=== PATIENT | female | born 1945 | race Caucasian/White ===

== ENCOUNTER → 2020-06-29 09:16 | Outpatient (BNVA) | payer BC, SELFPAY | PROVIDERS: PCP Internal Medicine; Visit Provider Hospitalist | DX: Z76.89 Persons encountering health services in other specified circumstances (principal) ==

== ENCOUNTER 2020-08-10 16:41 | Outpatient (REF) | payer BC, SELFPAY | END 2020-08-10 16:42 | disposition home or self-care (01) | LOC: HO.LAB 16:41 | PROVIDERS: Visit Provider Internal Medicine | DX: Z20.828 Contact with and (suspected) exposure to other viral communicable diseases (principal) | CPT/HCPCS: C9803; U0003 ==

== ENCOUNTER → 2020-10-28 08:57 | Outpatient (BNVA) | payer BC, SELFPAY | PROVIDERS: PCP Internal Medicine; Visit Provider Hospitalist ==

== ENCOUNTER 2020-12-28 10:06 | Outpatient (REF) | payer BC, SELFPAY ==
--- NOTE | ~2020-12-28 | XR_ITS ---
EXAMINATION: XR CHEST CLINICAL INFORMATION: Interstitial pulmonary disease COMPARISON: Previous chest x-ray most recent March 2020 TECHNIQUE: 2 views of the chest were obtained. FINDINGS: The cardiac and mediastinal contours are normal. The lungs are clear. There is no pleural effusion or pneumothorax. There is curvature of the lower thoracic spine to the right and mild degenerative change. XR/XR chest 2V IMPRESSION: No evidence for acute disease in the chest.
== END 2020-12-28 10:07 | disposition home or self-care (01) ==
LOC: HO.XRAY 10:06
PROVIDERS: PCP Internal Medicine; Visit Provider Hospitalist
DX: J84.9 Interstitial pulmonary disease, unspecified (principal)
CPT/HCPCS: 71046

== ENCOUNTER → 2020-12-29 09:18 | Outpatient (BNVA) | payer BC, SELFPAY | PROVIDERS: PCP Internal Medicine; Visit Provider Hospitalist ==

== ENCOUNTER → 2021-06-20 10:12 | Outpatient (BNVA) | payer BC, SELFPAY | PROVIDERS: PCP Internal Medicine; Visit Provider Hospitalist ==

== ENCOUNTER 2021-12-29 08:28 | Outpatient (REF) | payer BC, SELFPAY ==
--- NOTE | ~2021-12-29 | XR_ITS ---
EXAMINATION: XR CHEST CLINICAL INFORMATION: Interstitial pulmonary COMPARISON: 12/29/2019 TECHNIQUE: 2 views of the chest were obtained. FINDINGS: Normal symmetric lung volumes. No parenchymal consolidation. No pleural effusion. No pneumothorax. Cardiomediastinal silhouette and pulmonary vascularity are within normal limits. Aorta is atherosclerotic. No acute osseous abnormalities. XR/XR chest 2V IMPRESSION: No acute findings
== END 2021-12-29 08:29 | disposition home or self-care (01) ==
LOC: HO.XRAY 08:28
PROVIDERS: PCP Pediatrics; Visit Provider Hospitalist
DX: M35.02 Sjogren syndrome with lung involvement (principal); J84.9 Interstitial pulmonary disease, unspecified
CPT/HCPCS: 71046

== ENCOUNTER 2022-02-14 08:51 | Outpatient (REF) | payer BC, SELFPAY ==
--- NOTE | ~2022-02-14 | XR_ITS ---
EXAMINATION: XR CHEST CLINICAL INFORMATION: J84.9 - Interstitial pulmonary disease, unspecified COMPARISON: Chest radiographs 12/29/2021, 12/28/2020, 03/29/2020, 08/07/2019, 05/27/2019. TECHNIQUE: 2 views of the chest were obtained. FINDINGS: There is subtle density right lateral apex likely chronic pleural-parenchymal scarring not previously described. This overlies the right posterior fourth rib on frontal view. The lungs are otherwise clear with no interval airspace consolidation or groundglass opacity or fibrotic changes. No effusion. The costophrenic sulci are clear. The heart is normal in size. The hilar and mediastinal contours are normal. No acute bony abnormality. XR/XR chest 2V IMPRESSION: -Subtle density right lateral apex likely chronic pleural-parenchymal scarring not previously described. This could be further characterized with noncontrast CT chest. -No interval fibrotic changes, airspace consolidation, or effusion.
== END 2022-02-14 08:52 | disposition home or self-care (01) ==
LOC: HO.XRAY 08:51
PROVIDERS: Visit Provider Hospitalist
DX: J84.9 Interstitial pulmonary disease, unspecified (principal)
CPT/HCPCS: 71046

== ENCOUNTER 2022-04-03 07:17 | Outpatient (REF) | payer BC, SELFPAY ==
--- NOTE | ~2022-04-03 | XR_ITS ---
EXAMINATION: XR CHEST CLINICAL INFORMATION: Interstitial pulmonary disease COMPARISON: Previous chest x-rays most recent January 2022 TECHNIQUE: 2 views of the chest were obtained. FINDINGS: The cardiac and mediastinal contours are stable. There is mild biapical pleural thickening. There is question of a 7 mm right upper lobe nodule at the right lung apex. This is similar to previous recent exams. This is increased in size from older exam July [address] follow-up should be considered. There may be bronchial wall thickening. The lungs are otherwise clear. There is no pleural effusion or pneumothorax. There is mild scoliosis and degenerative changes of the spine. XR/XR chest 2V IMPRESSION: Question 7 mm right upper lobe nodule. Follow-up chest CT scan should be considered. Mild biapical pleural thickening stable from previous exams. Question bronchial wall thickening.
== END 2022-04-03 07:18 | disposition home or self-care (01) ==
LOC: HO.XRAY 07:17
PROVIDERS: Visit Provider Hospitalist
DX: J84.9 Interstitial pulmonary disease, unspecified (principal)
CPT/HCPCS: 71046

== ENCOUNTER 2022-04-10 09:38 | Outpatient (REF) | payer BC, SELFPAY ==
--- NOTE | ~2022-04-10 | CT_ITS ---
EXAMINATION: CT CHEST WITHOUT CONTRAST CLINICAL INFORMATION: Abnormal finding on diagnostic imaging. Pulmonary nodule. COMPARISON: Chest x-ray 04/03/2022. TECHNIQUE: Multidetector volumetric CT imaging of the chest was done. Axial MIP volume rendering provided. Sagittal and coronal reformatted images were obtained. This CT examination was performed using dose optimization techniques as appropriate, variously including the following: *Automated exposure control *Adjustment of mA and/or kV according to patient size (this includes techniques or standardized protocols for targeted exams where dose is matched to indication/reason for exam; i.e. extremities or head) *Use of iterative reconstruction technique DLP: 104 mGy-cm. FINDINGS: FLARE BREAKER: Expanded lungs with mild dextroscoliosis dorsal lumbar spine. LUNGS: There is bilateral apical parenchymal scarring and pleural thickening. Few patchy parenchymal densities seen in both apices, likely continuation of upper lobe scarring. There is several areas of ground-glass attenuation changes in the left upper lobe measuring 7 mm to 1.1 cm axial image 168/6. There are 3 mm nodules in the left upper lobe axial image 169/6 and 231/6. There is a 3 mm nodule right upper lobe axial image 237/6, a 3 mm nodule right lower lobe superior segment axial image 285/6, a 3 mm nodule right upper lobe adjacent to the major fissure axial image 280/6, a 3 mm nodule right upper lobe adjacent to the minor fissure axial image 300/6 and 3 mm nodule left lower lobe axial image 457/6. There is subtle tkhv-[id number] pattern right upper lobe axial image 31/4. MEDIASTINUM: The heart size and the great vessels are normal caliber. Central trachea and the bronchi appear widely patent. The thyroid lobes are symmetrical and normal. No abnormal mediastinal lymph nodes seen. There is moderate coronary artery calcifications. No pericardial effusion seen. Small hiatal hernia visualized. PLEURA: There is no pleural effusion. No pleural mass or thickening. AXILLA: There are small bilateral shotty submandibular lymph nodes. Punctate calcification seen in superficial right breast. UPPER ABDOMEN: Visualized liver, spleen, pancreas and bilateral adrenal glands are unremarkable. The gallbladder has been surgically removed. Adrenal glands are symmetrical and normal. OSSEOUS STRUCTURES: No lytic or sclerotic process seen. There is mild spondylosis dorsal spine. CT/CT chest wo con IMPRESSION: Multiple bilateral pulmonary nodules. Peripherally based mdwn-[id number] pattern right upper lobe. No acute consolidation or mass seen. Small reactive lymph nodes in bilateral axilla. Moderate coronary artery calcifications present. Fleischner guidelines were followed.
== END 2022-04-10 09:39 | disposition home or self-care (01) ==
LOC: HO.CT 09:38
PROVIDERS: PCP Pediatrics; Visit Provider Hospitalist
DX: R91.1 Solitary pulmonary nodule (principal); R93.89 Abnormal findings on diagnostic imaging of other specified body structures
CPT/HCPCS: 71250

== ENCOUNTER → 2022-09-18 13:54 | Outpatient (BNVA) | payer BC, SELFPAY | PROVIDERS: PCP Nurse Practitioner Family; Visit Provider Hospitalist | DX: Z13.89 Encounter for screening for other disorder (principal) ==

== ENCOUNTER → 2022-10-19 14:39 | Outpatient (BNVA) | payer BC, SELFPAY | PROVIDERS: PCP Nurse Practitioner Family; Visit Provider Hospitalist | DX: K21.9 Gastro-esophageal reflux disease without esophagitis (principal) ==

== ENCOUNTER → 2023-01-02 08:29 | Outpatient (BNVA) | payer BC, SELFPAY | PROVIDERS: PCP Nurse Practitioner Family; Visit Provider Hospitalist | DX: K21.9 Gastro-esophageal reflux disease without esophagitis (principal); J84.9 Interstitial pulmonary disease, unspecified ==

== ENCOUNTER 2023-09-04 08:19 | Outpatient (REF) | payer MEDICARE, SELFPAY ==
--- NOTE | ~2023-09-04 | XR_ITS ---
EXAMINATION: XR chest 2V CLINICAL INFORMATION: Reason for Exam J84.9 - Interstitial pulmonary disease, unspecified COMPARISON: Chest radiograph 04/03/2022 TECHNIQUE: 2 views of the chest FINDINGS: Clear lungs. No pneumothorax or pleural effusion. Normal cardiomediastinal silhouette. XR/XR chest 2V Impression: * Clear lungs.
== END 2023-09-04 08:20 | disposition home or self-care (01) ==
LOC: HO.XRAY 08:19
PROVIDERS: PCP Internal Medicine; Visit Provider Hospitalist
DX: J84.9 Interstitial pulmonary disease, unspecified (principal); J44.9 Chronic obstructive pulmonary disease, unspecified; M35.02 Sjogren syndrome with lung involvement; R13.10 Dysphagia, unspecified
CPT/HCPCS: 71046

== ENCOUNTER 2023-09-04 08:47 | Outpatient (AMB) | payer BC, SELFPAY ==
[2023-09-04 08:54] VITALS: BP 126/58; PULSE 76; O2SAT 97; BMI 25.6
--- NOTE | 2023-09-04 08:54 | A.OFFVIS_ITS ---
Intake Vital Signs 09/04/23 08:54 Height 4 ft 11 in Weight 126 lb 12.253 oz BMI 25.6 BP 126/58 L Blood Pressure Location Lt brachial Position Sitting Pulse 76 Pulse Source Pulse Oximeter Pulse Oximetry (%) 97 Oxygen Delivery Method Room Air Intake Visit Reasons: COPD Allergies Pork Derived Products Allergy (Severe, Uncoded 09/04/23 08:59) Hives Eggs Allergy (Intermediate, Uncoded 09/04/23 08:59) Hives and Rash Peanuts Allergy (Intermediate, Uncoded 09/04/23 08:59) Rash Hives HPI HPI Comments History of Present Illness Details The patient is a 78-year-old woman known history of positive NITA in Sjogren's disease along with 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 She has biopsy-proven acute fibrinous and organizing pneumonia. She responded well to the prednisone. She has done very well to the point that she is no longer on oxygen and she is back to work at least 3 times a week. She is also exercising between. She does follow-up with rheumatology. At this point she is getting vitamin D therapy. Based on the initial evaluation did not feel compelled to give her any therapies for the Sjogren's or the positive NITA at the time. She did have an x-ray today we did look at it demonstrates some nodular like opacities in the right mid lung area suggestive of the underlying interstitial lung disease with some reactivity. She has been on the prednisone 5 mg daily. Therefore, we talked about optimized therapy with some Plaquenil and increasing the prednisone some. She did well on the 10 mg. She still has some degree of hazy opacity in the right mid hemithorax. Therefore, she will have another x-ray today. If the x-ray still has that finding we may need to do a CT scan of the chest. If she continues have evidence of pneumonitis we need to increase her medications. 01/02/2023 the patient is here for pulmon benitez follow-up visit. The patient overall is doing better. She is tolerating the prednisone 2.5 mg daily. The patient did undergo endoscopy. Did have see the stricture and did have her dilation. She is going to have a repeat endoscopy in the near future. She was found to have reflux disease. She understands prednisone can worsen esophagitis so we need to be very careful. Right now she is tolerating the small dose. She is also taking antacids. Clinically patient is doing well from a respiratory status. Will plan to follow-up in 4-6 months with a chest x-ray. In the meantime she is going to continue with the prednisone since she can no longer tolerate the Plaquenil. 09/04/2023 the patient is here for a pulm onary follow-up visit. The patient overall has been doing well. She continues on the prednisone 2.5 mg daily. She has not gone back on the hydrochloroquine because of the hyponatremia. Seems that the reflux symptoms are better. Denies any significant shortness of breath or cough. She did have a chest x-ray today that we personally reviewed together. No evidence of any recurrent ground-glass opacities. The x-ray has not been read yet will await the final report for any other findings. 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 If it continues to occur the patient will seek medical attention for that. [facility] Medical History (Updated 09/04/23 @ 09:10 by Dustin Abdullahi MD) Dysphagia ILD (interstitial lung disease) Sjogrens syndrome Social History (Updated 06/20/21 @ 10:33 by DUYEN Mathews) Patient Tobacco Use Status: Former Tobacco user Tobacco use type: Cigarette Years Smoked: 20 years Review of Systems Const Denies night sweats Eyes Reports dry eyes ENT Denies change in voice, Denies dysphagia, Reports dry mouth, Denies lip swelling, Reports nasal congestion, Reports nasal discharge and Denies tongue swelling Card Denies chest pain Resp Reports cough GI Denies abdominal pain and Denies dysphagia Musc Denies no additional complaints Neuro Denies Neuro-related abnormal movements Psych Denies no additional complaints Hilario/Lymph Denies easy bleeding and Denies lymphadenopathy Aller/Immun Denies lip swelling and Denies tongue swelling Physical Exam Vital Signs: Last Vital Signs Pulse 76 09/04/23 08:54 BP 126/58 L 09/04/23 08:54 Pulse Ox 97 09/04/23 08:54 Oxygen Delivery Method Room Air 09/04/23 08:54 BMI result Body Mass Index 25.6 Const General: alert HEENT Mouth: other (DRY) Neck Neck: Yes normal visual inspection, Yes full ROM and Yes no lymphadenopathy Chest Chest palpation & inspection: normal inspection of the chest Resp Effort & Inspection: normal respiratory effort Auscultation: no rales and diminished lung sounds Cardio Rate: regular rate Rhythm: regular rhythm Heart sounds: S1 normal heart sound present and S2 normal heart sound present GI Palpation (GI): Soft to palpation and nontender Auscultation: normal bowel sounds Skin General skin exam: rashes and/or lesions noted Assessment & Plan Assessment & Plan (1) ILD (interstitial lung disease): Code(s): J84.9 - Interstitial pulmonary disease, unspecified (2) Sjogrens syndrome: Code(s): M35.00 - Sjogren syndrome, unspecified Qualifiers: Sjogren's organ involvement: lung involvement Qualified Code(s): M35.02 - Sicca syndrome with lung involvement (3) Dysphagia: Comment: s/p esophageal dilation Code(s): R13.10 - Dysphagia, unspecified Qualifiers: Dysphagia type: unspecified Qualified Code(s): R13.10 - Dysphagia, unspecified Plan continue prednisone 2.5mg F/U 6-8 months Coding Level of Care Code Est Pt Level 4 (95256) Diagnoses ILD (interstitial lung disease) J84.9 Sjogren's syndrome with lung involvement M35.02 Sjogren's organ involvement: lung involvement Dysphagia, unspecified type R13.10 Dysphagia type: unspecified Time Spent (min) 17
== END 2023-09-04 09:21 | disposition home or self-care (01) ==
PROVIDERS: PCP Nurse Practitioner Family; Visit Provider Hospitalist
DX: J84.9 Interstitial pulmonary disease, unspecified (principal); M35.02 Sjogren syndrome with lung involvement; R13.10 Dysphagia, unspecified
CPT/HCPCS: 99214

== ENCOUNTER 2024-02-26 08:32 | Outpatient (AMB) | payer BC, MEDICAID, SELFPAY ==
[2024-02-26 08:33] VITALS: BP 124/60; PULSE 76; O2SAT 98; BMI 26.9
--- NOTE | 2024-02-26 08:33 | A.OFFVIS_ITS ---
Vital Signs 02/26/24 08:33 Height 4 ft 11 in Weight 133 lb 6.075 oz BMI 26.9 BP 124/60 Blood Pressure Location Lt brachial Position Sitting Pulse 76 Pulse Source Pulse Oximeter Pulse Oximetry (%) 98 Oxygen Delivery Method Room Air Intake Visit Reasons: COPD Bowl Turner Required: No Allergies Pork Derived Products Allergy (Severe, Uncoded 02/26/24 08:37) Hives Eggs Allergy (Intermediate, Uncoded 02/26/24 08:37) Hives and Rash Peanuts Allergy (Intermediate, Uncoded 02/26/24 08:37) Rash Hives HPI Comments Details: The patient is a 78-year-old woman known history of positive NITA in Sjogren's disease along with 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 She has biopsy-proven acute fibrinous and organizing pneumonia. She responded well to the prednisone. She has done very well to the point that she is no longer on oxygen and she is back to work at least 3 times a week. She is also exercising between. She does follow-up with rheumatology. At this point she is getting vitamin D therapy. Based on the initial evaluation did not feel compelled to give her any therapies for the Sjogren's or the positive NITA at the time. She did have an x-ray today we did look at it demonstrates some nodular like opacities in the right mid lung area suggestive of the underlying in terstitial lung disease with some reactivity. She has been on the prednisone 5 mg daily. Therefore, we talked about optimized therapy with some Plaquenil and increasing the prednisone some. She did well on the 10 mg. She still has some degree of hazy opacity in the right mid hemithorax. Therefore, she will have another x-ray today. If the x-ray still has that finding we may need to do a CT scan of the chest. If she continues have evidence of pneumonitis we need to increase her medications. 01/02/2023 the patient is here for pulmonary follow-up visit. The patient overall is doing better. She is tolerating the prednisone 2.5 mg daily. The patient did undergo endoscopy. Did have see the stricture and did have her dilation. She is going to have a repeat endoscopy in the near future. She was found to have reflux disease. She understands prednisone can worsen esophagitis so we need to be very careful. Right now she is tolerating the small dose. She is also taking antacids. Clinically patient is doing well from a respiratory status. Will plan to follow-up in 4-6 months with a chest x-ray. In the meantime she is going to continue with the prednisone since she can no longer tolerate the Plaquenil. 09/04/2023 the patient is here for a pulmonary follow-up visit. The patient overall has been doing well. She continues on the prednisone 2.5 mg daily. She has not gone back on the hydrochloroquine because of the hyponatremia. Seems that the reflux symptoms are better. Denies any significant shortness of breath or cough. She did have a chest x-ray today that we personally reviewed together. No evidence of any recurrent ground-glass opacities. The x-ray has not been read yet will await the final report for any other findings. 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 If it continues to occur the patient will seek medical attention for that. 02/26/2024 the patient is here for pulmonary follow-up visit. She continues to do well just on the 2.5 mg of prednisone. She has been exercising although. Sometimes she exercises between an hour to an hour 45 minutes. Now with the heat and humidity is becoming hard to exercise. Therefore she is back in off a little bit. I believe does good idea. During the visit we did go for brief walking oximetry the patient maintain a pulse ox between 93-96% with activity. This was a fast pace. This reassuring although she needs to be careful with heat and humidity in the ground ozone. We did talk about the concerns with right now the quality outside. Respiratory exam is clear. No significant wheezing or crackles appreciated at this time. Therefore will hold off any inhalers. If the patient develops any worsening symptoms she will call [facility] follow-up in the spring. She will have an x-ray before that visit. [facility] Medical History (Updated 09/04/23 @ 09:10 by Dustin Abdullahi MD) Dysphagia ILD (interstitial lung disease) Sjogrens syndrome Social History (Updated 06/20/21 @ 10:33 by DUYEN Mathews) Patient Tobacco Use Status: Former Tobacco user Tobacco use type: Cigarette Years Smoked: 20 years Review of Systems Const Denies night sweats Eyes Reports dry eyes ENT Denies change in voice, Denies dysphagia, Reports dry mouth, Denies lip swelling, Reports nasal congestion, Reports nasal discharge and Denies tongue swelling Card Denies chest pain Resp Reports cough GI Denies abdominal pain and Denies dysphagia Musc Denies no additional complaints Neuro Denies Neuro-related abnormal movements Psych Denies no additional complaints Hilario/Lymph Denies easy bleeding and Denies lymphadenopathy Aller/Immun Denies lip swelling and Denies tongue swelling Physical Exam Vital Signs: Last Vital Signs Pulse 76 02/26/24 08:33 BP 124/60 02/26/24 08:33 Pulse Ox 98 02/26/24 08:33 Oxygen Delivery Method Room Air 02/26/24 08:33 BMI result Body Mass Index 26.9 Const General: alert HEENT Mouth: other (DRY) Neck Neck: Yes normal visual inspection, Yes full ROM and Yes no lymphadenopathy Chest Chest palpation & inspection: normal inspection of the chest Resp Effort & Inspection: normal respiratory effort Auscultation: no crackles, no rales, no rhonchi, no wheezes and diminished lung sounds Cardio Rate: regular rate Rhythm: regular rhythm Heart sounds: S1 normal heart sound present and S2 normal heart sound present GI Palpation (GI): Soft to palpation and nontender Auscultation: normal bowel sounds Skin General skin exam: rashes and/or lesions noted Assessment & Plan Assessment & Plan (1) ILD (interstitial lung disease): Code(s): J84.9 - Interstitial pulmonary disease, unspecified Category: Medical (2) Sjogrens syndrome: Code(s): M35.00 - Sjogren syndrome, unspecified Category: Medical Qualifiers: Sjogren's organ involvement: lung involvement Qualified Code(s): M35.02 - Sicca syndrome with lung involvement (3) Dysphagia: Comment: s/p esophageal dilation Code(s): R13.10 - Dysphagia, unspecified Category: Medical Qualifiers: Dysphagia type: unspecified Qualified Code(s): R13.10 - Dysphagia, unspecified (4) Pulmonary nodule: Code(s): R91.1 - Solitary pulmonary nodule Category: Medical Plan continue prednisone 2.5mg F/U Spring [address] chest Orders: Orders CT chest wo IV con 10/18/24 J84.9 - Interstitial pulmonary disease, unspecif ied, R91.1 - Solitary pulmonary nodule Coding Level of Care Code Est Pt Level 4 (09720) Diagnoses ILD (interstitial lung disease) J84.9 Sjogren's syndrome with lung involvement M35.02 Sjogren's organ involvement: lung involvement Dysphagia, unspecified type R13.10 Dysphagia type: unspecified Pulmonary nodule R91.1 Time Spent (min) 16
== END 2024-02-26 08:53 | disposition home or self-care (01) ==
PROVIDERS: PCP Internal Medicine; Visit Provider Hospitalist
DX: J84.9 Interstitial pulmonary disease, unspecified (principal); M35.02 Sjogren syndrome with lung involvement; R13.10 Dysphagia, unspecified; R91.1 Solitary pulmonary nodule
CPT/HCPCS: 99214

== ENCOUNTER → 2024-02-26 08:32 | Outpatient (BNVA) | payer BC, MEDICAID, SELFPAY | PROVIDERS: PCP Internal Medicine; Visit Provider Hospitalist ==

== ENCOUNTER 2024-10-21 07:09 | Outpatient (REF) | payer BC, MEDICAID, SELFPAY ==
--- NOTE | ~2024-10-21 | CT_ITS ---
CLINICAL HISTORY: J84.9 - Interstitial pulmonary disease, unspecified CT chest without contrast Comparison: 04/10/2022 Findings: Lung bergman are clear without acute infiltrates. Stable chronic interstitial fibrosis pattern. Stable bilateral apical pleural scarring. No significant pulmonary nodules identified. No significant mediastinal adenopathy. No significant free pleural fluid. Dense coronary artery calcification. Dense mitral annulus calcification. No significant focal bony abnormalities. Impression: No acute processes This document has been electronically signed by: Silverio Fuentes MD on 10/21/2024 19:09:51
--- OUTSIDE RECORDS SUMMARY | 2024-10-21 07:12 | XMS_ITS | Encounter Summary ---
Author Organization [facility], Address [address] [place] [address] Phone Care Team Providers Care Tube Molder [employer] Name Role Phone Tahmina Orta MD Primary Care Provider [phone] Encounter Details Date Type Department Care Team (Late st Contact Info) Description 08/16/2022 Documentation Only [facility], [address] [place] [id number] David Payan MD [address] [place] [id number] Social History Tobacco Use Types Packs/Day Years Used Date Smoking Tobacco: Never Assessed Comments Unknown Sex and Gender Information Value Date Recorded Sex Assigned at Not on file Legal Sex Female 10:21 AM EST Gender Identity Not on file Sexual Orientation Not on file documented as of this encounter Plan of Treatment Not on file documented as of this encounter Visit Diagnoses Not on filedocumented in this encounter Care Teams Tube Molder [employer] Relationship Specialty Start Date End Date Tahmina Orta MD [address] [place] [address], [address] [place] [address] PCP - General Radiation Oncology 09/06/22 documented as of this encounter
--- OUTSIDE RECORDS SUMMARY | 2024-10-21 07:12 | XMS_ITS | Continuity of Care Document ---
Author Organization [facility] Address [address] [place] [address]- Care Team Providers Care Instrument Designer Name Role Phone Not on Staff, PCP Primary Care Physician Unavail able Encounter [facility] Date(s): 08/26/24 - 09/25/24 [facility] [address] [place] [address]- Attending Physician: Thelma Jose Admitting Physician: AdmtrThelma Referring Physician: Admtr ArPaloma Encounter Type: Triage Allergies, Adverse Reactions, Alerts Substance Criticality Severity Reaction Reaction Severity Status Nuts Active Pork Active Immunizations Given and Recorded Vaccine Date Status Refusal Reason RSV vaccine, preF A-preF B, recombinant 09/10/23 R ecorded Influenza Virus Vaccine (oldterm) 07/09/23 Recorde d SARS-CoV-2(COVID-19)mRNA-LNP vac([id number]) 06/14/23 Recorded [id number] bivalent booster vax 1 02/05/23 Recorded [id number] bivalent booster vax 05/27/22 Recorded tetanus/diphtheria/pertussis, acel(Tdap) 12/26/22 Recorded tetanus/diphtheria/pertussis, acel(Tdap) 02/06/12 Recorded influenza virus vaccine, inactivated 07/08/22 Isidro rded influenza virus vaccine, inactivated 07/11/21 Isidro rded influenza virus vaccine, inactivated 06/25/20 Isidro rded influenza virus vaccine, inactivated 07/11/19 Isidro rded SARS-CoV-2 (COVID-19) mRNA-1273 vaccine 11/30/21 R ecorded SARS-CoV-2 (COVID-19) mRNA-1273 vaccine 06/28/21 R ecorded SARS-CoV-2 (COVID-19) mRNA-1273 vaccine 11/06/20 R ecorded SARS-CoV-2 (COVID-19) mRNA-1273 vaccine 10/07/20 R ecorded zoster vaccine, inactivated 02/17/20 Recorded zoster vaccine, inactivated 10/03/19 Recorded pneumococcal 13-valent vaccine 06/16/16 Recorded Zoster Vaccine Live 05/27/12 Recorded pneumococcal 23-valent vaccine 02/06/12 Recorded tetanus-diphtheria toxoids (Td) 08/19/04 Recorded 1Result Comment: [facility] Medications calcium (as carbonate) 500 mg oral tablet, chewable 1 tablet = 500 mg, Daily, 0 Refills, Maintenance, 07/31/22 8:15:00 AM EST, Partial fill upon patient request if the prescription is for a schedule II opioid drug. Start Date: 07/31/22 Status: Ordered Repeat number: 1 home blood pressure monitor home blood pressure monitor, See Instructions, # 1 each, Refills 0, Tot. Refills 0, Maintenance, home blood pressure monitor, 01/09/24 8:34:00 AM EDT, Supply Start Date: 01/09/24 Status: Ordered Quantity: 1.0 Unit: each Repeat number: 1 Indication: Essential (primary) hypertension Ocuvite By Mouth, Daily, 0 Refills, Maintenance, 08/18/21 12:52:00 PM EST, Partial fill upon patient request if the prescription is for a schedule II opioid drug. Start Date: 08/18/21 Status: Ordered Repeat number: 1 pantoprazole 40 mg oral delayed release tablet 1 tablet = 40 mg, By Mouth, Daily, # 90 tablet, 3 Refills, Maintenance, 08/26/24 11:14:00 AM EST, EC Tablet, 150, cm, 08/26/24 10:29:00 EST, Height, 58, kg, 09/04/23 21:54:00 EST, Dry Weight Start Date: 08/26/24 Status: Ordered Quantity: 90.0 Unit: tablet Repeat number: 4 PredniSONE = 2.5 mg, By Mouth, Daily, 0 Refills, Maintenance, 11/07/22 9:17:00 AM EDT, Partial fill upon patient request if the prescription is for a schedule II opioid drug. Start Date: 11/07/22 Status: Ordered Repeat number: 1 Vitamin D3 400 intl units oral capsule 1 capsule = 10 mcg, By Mouth, Daily, 0 Refills, Maintenance, 08/18/21 12:54:00 PM EST, Partial fillupon patient request if the prescription is for a schedule II opioid drug. Start Date: 08/18/21 Status: Ordered Repeat number: 1 Walker Walker, See Instructions, # 1 each, Refills 0, Tot. Refills 0, Maintenance, use as needed for ambulatory support for fibula fracture, 01/16/20 11:54:00 PM EDT, Supply Start Date: 01/16/20 Status: Ordered Quantity: 1.0 Unit: each Repeat number: 1 Problem List Condition Confirmation Course Effective Dates Status H ealth Status Informant Sensation, choking Confirmed Active [place] of foot Confirmed Active Dysphagia Confirmed Active Chronic GERD Confirmed Active History of pneumonia Confirmed Active HTN (hypertension) Confirmed Active Hypochloremia Confirmed Active Hyponatremia Confirmed Active Interstitial lung disease Confirmed Active Osteoarthritis of right knee Confirmed Active Seasonal allergies Confirmed Active Sjogren's syndrome Confirmed Active Tubular adenoma of colon Confirmed 04/13/22 Active Social History Social History Type Response Smoking Status Former smoker, quit more than 30 days ago; Other: quit in 1981; entered on: 07/31/22 Sex Sex Representation Female (finding) Patient Care team information Care Team Personnel Name: Not on Staff, PCP Position: S Physician (General Medicine) Member Role: PCP Care Team Related Persons Name: SHAHEEN LOPEZ Name: ANA SUTTON Insurance Providers Guarantor name: VINAY SUTTON Health Plan Information #: 1 Payer: KANDI Member Number: NA Policy Number: NA Group Number: NA Health Plan Information #: 2 [facility] Member Number: NA Policy Number: NA Group Number: NA
--- OUTSIDE RECORDS SUMMARY | 2024-10-21 07:12 | XMS_ITS | Encounter Summary ---
Author Organization [facility], Address [address] [place] [address] Phone Care Team Providers Care Digital Printer Operator Name Role Phone Tahmina Orta MD Primary Care Provider [phone] Encounter Details Date Type Department Care Team (Late st Contact Info) Description 08/16/2022 Documentation Only [facility], [address] [place] [phone] David Payan MD [address] [place] [phone] Social History Tobacco Use Types Packs/Day Years [...] on filedocumented in this encounter Care Teams Digital Printer Operator Relationship Specialty Start Date End Date Tahimna Orta MD [address] [place] [address], [address] [place] [address] PCP - General Radiation Oncology 09/06/22 documented as of this encounter
--- OUTSIDE RECORDS SUMMARY | 2024-10-21 07:12 | XMS_ITS | Encounter Summary ---
Author Organization [facility], Address [address] [place] [address] Phone Care Team Providers Care Pellet Mill Operator Name Role Phone Tahmina Orta MD Primary Care Provider Encounter Details Date Type Department Care Team (Late st Contact Info) Description 08/16/2022 Documentation Only [facility], [address] [place] [phone] David Payan MD [address] [place] [phone] Social History Tobacco Use Types Packs/Day Years [...] on filedocumented in this encounter Care Teams Pellet Mill Operator Relationship Specialty Start Date End Date Tahmina Orta MD [address] [place] [address], [address] [place] [address] PCP - General Radiation Oncology 09/06/22 documented as of this encounter
--- OUTSIDE RECORDS SUMMARY | 2024-10-21 07:12 | XMS_ITS | Continuity of Care Document ---
Author Organization [facility] Address [address] [facility], [address] [place] [address]- Care Team Providers Care Rehabilitation Services Director Name Role Phone Fanny [employer], Beckie Oliveira Primary Care Physician Encounter 10/13/24 - 10/20/24 [facility] [address], [address] [place], [place] [address] Attending Physician: Percy العلي, Laura Fabian Admitting Physician: Percy العلي, Laura Fabian Referring Physician: Percy العلي, Laura Fabian Encounter Type: OutPatient One Time Allergies, Adverse Reactions, Alerts Substance Criticality Severity Reaction Reaction Severity Status Nuts Active Pork Active Immunizations Given and Recorded Vaccine Date Status Refusal Reason RSV vaccine, preF A-preF B, recombinant 09/10/23 R ecorded Influenza Virus Vaccine (oldterm) 07/09/23 Recorde d SARS-CoV-2(COVID-19)mRNA-LNP vac([id number]) 06/14/23 Recorded [id number] bivalent booster vax 1 02/05/23 Recorded [id number] bivalent booster vax 05/27/22 Recorded tetanus/diphtheria/pertussis, acel(Tdap) [...] Date: 07/31/22 Status: Ordered Repeat number: 1 Eliquis 5 mg oral tablet 1 tablet = 5 mg, By Mouth, 2 times a day, for a. fib; ERAN VAsc score is 4, # 180 tablet, 2 Refills, Maintenance, 09/30/24 5:35:00 PM EST, Tablet, [id number], Partial fill upon patient request if the prescription is for a schedule II opioid drug., 150, cm, 09/29/24 12:44:00 EST, Height, 58, kg, 09/04/23 21:54:00 EST, Dry Weight Start Date: 09/30/24 Status: Ordered Quantity: 180.0 Unit: tablet Repeat number: 3 home blood pressure monitor home blood pressure monitor, See Instructions, # 1 each, Refills 0, Tot. Refills 0, Maintenance, home blood pressure monitor, 01/09/24 8:34:00 AM EDT, Supply Start Date: 01/09/24 Status: Ordered Quantity: 1.0 Unit: each Repeat number: 1 Indication: Essential (primary) hypertension metoprolol 25 mg oral tablet, extended release 25 mg, 1, tablet, By Mouth, Daily, # 90 tablet, Refills 3, Tot. Refills 3, Maintenance, 09/29/24 2:19:00 PM EST, Route to Pharmacy Electronically, [id number], Partial fill upon patient request if the prescription is for a schedule II opioid drug., 150, cm, 09/29/24 12:44:00 EST, Height, 58, kg, 09/04/23 21:54:00 EST, Dry Weight Start Date: 09/29/24 Status: Ordered Quantity: 90.0 Unit: tablet Repeat number: 4 Indication: Unspecified atrial fibrillation Ocuvite By Mouth, Daily, 0 Refills, Maintenance, [...] Date: 08/18/21 Status: Ordered Repeat number: 1 [place] Calab[place], See Instructions, # 1 each, Refills 0, Tot. Refills 0, Maintenance, use as needed for ambulatory support for fibula fracture, 01/16/20 11:54:00 PM EDT, Supply Start Date: 01/16/20 Status: Ordered Quantity: 1.0 Unit: each Repeat number: 1 Problem List Condition Confirmation Course Effective Dates Status H ealth Status Informant Sensation, choking Confirmed Active B12 deficiency Confirmed Active [place] of foot Confirmed Active Dysphagia Confirmed Active Chronic GERD Confirmed Active History of pneumonia Confirmed Active HTN (hypertension) Confirmed Active Hypochloremia Confirmed Active Hyponatremia Confirmed Active Interstitial lung disease Confirmed Active Osteoarthritis of right knee Confirmed Active Seasonal allergies Confirmed Active Sjogren's syndrome Confirmed Active Tubular adenoma of colon Confirmed 04/13/22 Active Results Radiology Reports * Exam Date Time Procedure Performing Provider Status 10/13/24 10:48 AM XR Hip w/Pelvis 2-3 View Left Perry Mccoy; Kadi (Verified) Notes: (XR Hip w/Pelvis 2-3 View Left) Reason For Exam: Pain RESULT: XR Hip w/Pelvis 2-3 View Left XR Hip w/Pelvis 2-3 View Left Reason: Pain COMPARISON: AP pelvis 08/27/2018 FINDINGS: Pelvic ring is intact without fracture no lytic or blastic bone lesions. Bones are generally osteopenic. Left hip joint is well maintained without any significant degenerative changes here. No evidence for avascular necrosis of the femoral head. There are mild enthesopathic changes about the greater trochanter. There are atherosclerotic changes of the iliac and femoral vessels. IMPRESSION: No acute findings. Enthesopathic changes of the greater trochanter. Osteopenia. WSN: [id number] Ordering Physician: Laura Greer Dictated By: Dav Bonds MD Dictated Date/Time: 10/14/24 7:23 am Reviewed By: Dav Bonds MD Signed By: Dav Bonds MD Signed Date/Time: 10/14/24 7:23 am Transcribed By: CHELY Transcribed Date/Time: 10/14/24 7:19 am * Exam Date Time Procedure Performing Provider Status 10/13/24 10:48 AM Ankle Min 3 Views Left Perry Mccoy (Verified) Notes: (Ankle Min 3 Views Left) Reason For Exam: Pain RESULT: Ankle Min 3 Views Left Examination: Left ankle performed on 10/13/2024. History: Reason: Pain Findings: Frontal, oblique, and lateral views of the left ankle are compared to a prior study dated 01/16/2020. The mortise is preserved. Deformity of the lateral malleolus is consistent with prior trauma. No acute fractures or dislocations are seen. There is no productive change. The soft tissues are unremarkable. Vascular calcification is noted. IMPRESSION: There is no osseous abnormality. WSN: [id number] Ordering Physician: Laura Greer Dictated By: Marianna Maria MD Dictated Date/Time: 10/13/24 10:57 a Reviewed By: Marianna Maria MD Signed By: Marianna Maria MD Signed Date/Time: 10/13/24 10:57 am Transcribed By: CHELY Transcribed Date/Time: 10/13/24 10:55 am Social History Social History Type Response Smoking Status Former smoker, quit more than 30 days ago; Other: quit in 1981; entered on: 09/29/24 Sex Sex Representation Female (finding) Patient Care team information Care Team Personnel Name: Beckie Escobedo NP Position: S PCO Associate Professional Member Role: PCP Address: [address] [place] [address] [address] Telecom: Care Team Related Persons Name: SHAHEEN LOPEZ Name: ANA SUTTON Insurance Providers Guarantor name: VINAY SUTTON Health Plan Information #: 2 Payer: [facility] Member Number: [id number] Policy Number: KANDI Group Number: KANDI Health Plan Information #: 1 Payer: NA Member Number: [id number] Policy Number: KANDI Group Number: [id number]
--- OUTSIDE RECORDS SUMMARY | 2024-10-21 07:12 | XMS_ITS | Encounter Summary ---
Author Organization [facility] Address [address] [place] [address] Care Team Providers Care Excellence Consultant Name Role Phone Kenny Alicea MD Primary Care Provider Reason for Visit * Imaging (Routine) - Pending Review Specialty Diagnoses / Procedures Referred By Contac t Referred To Contact Radiology Diagnoses Encounter for screening mammogram for breast cancer Procedures MG Mammo Digital Screening w Hipolito bilat MG Mammo Digital Screening w Hipolito bilat Kenny Alicea MD [address] [place] [address] Phone: tel: fax: [facility] Referral ID Status Reason Start Date Expiration Date V isits Requested Visits Authorized [id number] Pending Review 06/05/2024 10/11/2024 1 1 Encounter Details Date Type Department Care Team (Latest Contact Info) Description 10/08/2024 8:22 AM EST - 10/08/2024 11:59 PM [facility] Encounter Radiology Department [address] [address] Encounter for screening mammogram for breast cancer Discharge Disposition: Home or Self Care Social History Tobacco Use Types Packs/Day Years Used Date Smoking Tobacco: Former Cigarettes Q uit: 08/20/1979 Smokeless Tobacco: Never Alcohol Use Standard Drinks/Week Comments No 0 (1 standard drink = 0.6 oz pur e alcohol) Comments No Sex and Gender Information Value Date Recorded Sex Assigned at Not on file Legal Sex Female 2:04 AM EST Gender Identity Not on file Sexual Orientation Not on file documented as of this encounter Medications at Time of Discharge calcium carbonate-choleca lciferol 500 mg-10 mcg (400 unit) per tablet Take by mouth. hydroxychloroquin e (PLAQUENIL) 200 mg tablet Take 1 tablet (200 mg total) by mouth 1 (one) time each day. 06/20/2021 vit A,C and B-kgoiyl-trodbpxt (OCUVITE) 300 mcg-200 mg-27 mg-2 mg tablet Take by mouth. documented as of this encounter Discharge Disposition Disposition Code Departure Means Destination Home or Self Care documented in this encounter Plan of Treatment Not on file documented as of this encounter Procedures Procedure Name Priority Date/Time Associated Diagnosis Comments MG MAMMO DIGITAL SCREENING W HIPOLITO BILAT Routine 10/08/2024 8:34 AM EST Encounter for screening mammogram for breast cancer documented in this encounter Results * MG Mammo Digital Screening w Hipolito bilat (10/08/2024 8:34 AM EST) Anatomical Region Laterality Modality Breast Bilateral Mammography 10/08/2024 4:39 PM EST Impressions 10/08/2024 4:43 PM EST 1. No mammographic evidence of malignancy 2. Scattered fibroglandular tissue BI-RADS CATEGORY: 2 - BENIGN RECOMMENDATION: Screening bilateral mammogram is recommended in 1 year. Mammo Location: [facility], [address] [place] [address], [address], . -------- FINAL REPORT -------- Dictated By: Ninfa Oliveira Dictated Date: 10/08/2024 16:39 ET Assigned Physician: Ninfa Oliveira Reviewed and Electronically Signed By: Ninfa Oliveira Signed Date: 10/08/2024 16:43 ET Workstation ID: [id number] Transcribed By: Self Edit Transcribed Date: 10/08/2024 16:39 ET Narrative 10/08/2024 4:43 PM EST A BILATERAL DIGITAL 3D SCREENING MAMMOGRAPHY HISTORY: Routine screening. ??No family history of breast cancer. COMPARISON: Multiple priors dating back to 09/09/2020 Technique: Bilateral full field digital mammography (3D) was performed using standard CC and MLO projections CAD ??was used to evaluate this mammogram. FINDINGS: Right: No suspicious masses, groups of microcalcification or areas of architectural distortion identified. Stable typically benign parenchymal asymmetries. Left: No suspicious masses, groups of microcalcification or areas of architectural distortion identified. Stable typically benign parenchymal asymmetries. BREAST DENSITY: B - There are scattered areas of fibroglandular density. Procedure Note Ninfa Oliveira MD - 10/08/2024 A BILATERAL DIGITAL 3D SCREENING MAMMOGRAPHY HISTORY: Routine screening. No family history of breast cancer. COMPARISON: Multiple priors dating back to 09/09/2020 Technique: Bilateral full field digital mammography (3D) was performedusing standard CC and MLO projections CAD was used to evaluate this mammogram. FINDINGS: Right: No suspicious masses, groups of microcalcification or areas ofarchitectural distortion identified. Stable typically benign parenchymalasymmetries. Left: No suspicious masses, groups of microcalcification or areas ofarchitectural distortion identified. Stable typically benign parenchymalasymmetries. BREAST DENSITY: B - There are scattered areas of fibroglandular density. IMPRESSION: 1. No mammographic evidence of malignancy 2. Scattered fibroglandular tissue BI-RADS CATEGORY: 2 - BENIGN RECOMMENDATION: Screening bilateral mammogram is recommended in 1 year. Mammo Location: [facility], [address] [place] [address], [address], . -------- FINAL REPORT -------- Dictated By: Ninfa Oliveira Dictated Date: 10/08/2024 16:39 ET Assigned Physician: Ninfa Oliveira Reviewed and Electronically Signed By: Ninfa Oliveira Signed Date: 10/08/2024 16:43 ET Workstation ID: [id number] Transcribed By: Self Edit Transcribed Date: 10/08/2024 16:39 ET Kenny Alicea MD IMG BI PROCEDURES Final Result documented in this encounter Visit Diagnoses Diagnosis Encounter for screening mammogram for breast cancer documented in this encounter Care Teams Excellence Consultant Relationship Specialty Start Date End Date Kenny Alicae MD [address] [place] [address] PCP - General Internal Medicine 03/10/21 documented as of this encounter
--- OUTSIDE RECORDS SUMMARY | 2024-10-21 07:12 | XMS_ITS | Clinical Summary ---
Author Organization [facility], Address [address] [place] [address] [place] [address] Phone Care Team Providers Care Insurance Agents Supervisor Name Role Phone Tahmina Orta MD Primary Care Provider Allergies Active Allergy Reactions Criticality Noted Date Comments Egg-Derived Products 08/16/2022 Pork Allergy 08/16/2022 Medications hydroxychloroqui ne (PLAQUENIL) 200 MG tablet Take 200 mg by mouth 1 (one) time each day 07/25/2022 Active calcium carbonate (TUMS) 500 MG chewable tablet Chew 1 tablet 1 (one) time each day Active Multiple Vitamins-Mineral s (OCUVITE EXTRA PO) Take by mouth Active Cholecalciferol (Vitamin D3) 10 MCG (400 UNIT) capsule Take by mouth Active Active Problems Problem Noted Date Diagnosed Date Hypertensive disorder 08/16/2022 Hyponatremia 08/16/2022 Social History Tobacco Use Types Packs/Day Years Used Date Smoking Tobacco: Never Assessed Comments Unknown Sex and Gender Information Value Date Recorded Sex Assigned at Not on file Legal Sex Female 10:21 AM EST Gender Identity Not on file Sexual Orientation Not on file Plan of Treatment Health Maintenance Due Date Last Done Comments Influenza Vaccine (#1) 2024 Pneumococcal Vaccine: 65+ Years Completed 06/16/2016, 02/06/2012 Hepatitis B Vaccine Aged Out No longe r eligible based on patient's age to complete this topic Insurance [facility] Care Teams Insurance Agents Supervisor Relationship Specialty Start Date End Date Tahmina Orta MD [address] [place] [address], [address] [place] [address] PCP - General Radiation Oncology 09/06/22
--- OUTSIDE RECORDS SUMMARY | 2024-10-21 07:12 | XMS_ITS | Encounter Summary ---
Author Organization [facility], Address [address] [place] [address] Phone Care Team Providers Care Transit Worker Name Role Phone Tahmina Orta MD Primary Care Provider [phone] Encounter Details Date Type Department Care Team (Late st Contact Info) Description 08/16/2022 Documentation Only [facility], [address] [place] [phone] David Payan MD [address] [place] [phone] Social History Tobacco Use Types Packs/Day Years [...] on filedocumented in this encounter Care Teams Transit Worker Relationship Specialty Start Date End Date Tahmina Orta MD [address] [place] [address], [address] [place] [address] PCP - General Radiation Oncology 09/06/22 documented as of this encounter
--- OUTSIDE RECORDS SUMMARY | 2024-10-21 07:12 | XMS_ITS | Encounter Summary ---
Author Organization [facility], Address [address] [place] [address] Phone Care Team Providers Care Guest Laundry Attendant Name Role Phone Tahmina Orta MD Primary Care Provider [phone] Encounter Details Date Type Department Care Team (Late st Contact Info) Description 08/16/2022 Documentation Only [facility], [address] [place] [phone] David Payan MD [address] [place] [phone] Social History Tobacco Use Types Packs/Day Years [...] on filedocumented in this encounter Care Teams Guest Laundry Attendant Relationship Specialty Start Date End Date Tahmina Orta MD [address] [place] [address], [address] [place] [address] PCP - General Radiation Oncology 09/06/22 documented as of this encounter
--- OUTSIDE RECORDS SUMMARY | 2024-10-21 07:12 | XMS_ITS | Encounter Summary ---
Author Organization [facility], Address [address] [place] [address] Phone Care Team Providers Care Grinder Set Up Operator External Name Role Phone Tahmina Orta MD Primary Care Provider [phone] Encounter Details Date Type Department Care Team (Late st Contact Info) Description 09/06/2022 Documentation Only [facility], [address] [place] [address] David Payan MD [address] [place] [phone] Social History Tobacco Use Types Packs/Day Years [...] on filedocumented in this encounter Care Teams Grinder Set Up Operator External Relationship Specialty Start Date End Date Tahmina Orta MD [address] [place] [address], [address] [place] [address] PCP - General Radiation Oncology 09/06/22 documented as of this encounter
--- OUTSIDE RECORDS SUMMARY | 2024-10-21 07:12 | XMS_ITS | Encounter Summary ---
Author Organization [facility], Address [address] [place] [address] Phone Care Team Providers Care Knot Saw Operator Name Role Phone Tahmina Orta MD Primary Care Provider [phone] Encounter Details Date Type Department Care Team (Late st Contact Info) Description 08/16/2022 Documentation Only [facility], [address] [place] [id number] David Payan MD [address] [place] [phone] Social History Tobacco Use Types Packs/Day Years [...] on filedocumented in this encounter Care Teams Knot Saw Operator Relationship Specialty Start Date End Date Tahmina Orta MD [address] [place] [address], [address] [place] [address] PCP - General Radiation Oncology 09/06/22 documented as of this encounter
== END 2024-10-21 07:10 | disposition home or self-care (01) ==
LOC: HO.CT 07:09
PROVIDERS: PCP Internal Medicine; Visit Provider Hospitalist
DX: J84.9 Interstitial pulmonary disease, unspecified (principal); R91.1 Solitary pulmonary nodule
CPT/HCPCS: 71250

== ENCOUNTER → 2024-10-21 07:11 | Outpatient (BNV) | payer BC, MEDICAID, SELFPAY | PROVIDERS: PCP Internal Medicine; Visit Provider Radiology Diagnostic Radiology | DX: J84.9 Interstitial pulmonary disease, unspecified (principal) | CPT/HCPCS: 71250 ==

== ENCOUNTER 2024-11-11 10:19 | Outpatient (AMB) | payer BC, MEDICAID, SELFPAY ==
[2024-11-11 10:22] VITALS: BP 102/50; PULSE 61; O2SAT 97; BMI 27.8
--- NOTE | 2024-11-11 10:22 | A.OFFVIS_ITS ---
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 She has biopsy-proven acute fibrinous and organizing pneumonia. She responded well to the prednisone. She has done very well to the point that she is no longer on oxygen and she is back to work at least 3 times a week. She is also exercising between. She does follow-up with rheumatology. At this point she is getting vitamin D therapy. Based on the initial evaluation did not feel compelled to give her any therapies for the Sjogren's or the positive NITA at the time. She did have an x-ray today we did look at it demonstrates some nodular like opacities in the right mid lung area suggestive of the underlying interstitial lung disease with some reactivity. She has been on the prednisone 5 mg daily. Therefore, we talked about optimized therapy with some Plaquenil and increasing the prednisone some. She did well on the 10 mg. She still has some degree of hazy opacity in the right mid hemithorax. Therefore, [facility]. If the x-ray still has that finding we may need to do a CT scan of the chest. If she continues have evidence of pneumonitis we need to increase her medications. 01/02/2023 the patient is here for pulmonary follow-up visit. The patient overall is doing better. She is tolerating the prednisone 2.5 mg daily. The patient did undergo endoscopy. Did have see the stricture and did have her dilation. She is going to have a repeat endoscopy in the near future. She was found to have reflux disease. She understands prednisone can worsen esophagitis so we need to be very careful. Right now she is tolerating the small dose. She is also taking antacids. Clinically patient is doing well from a respiratory status. Will plan to follow-up in 4-6 months with a chest x-ray. In the meantime she is going to continue with the prednisone since she can no longer tolerate the Plaquenil. 09/04/2023 the patient is here for a pulmonary follow-up visit. The patient overall has been doing well. She continues on the prednisone 2.5 mg daily. She has not gone back on the hydrochloroquine because of the hyponatremia. Seems that the reflux symptoms are better. Denies any significant shortness of breath or cough. She did have a chest x-ray today that we personally reviewed together. No evidence of any recurrent ground-glass opacities. The x-ray has not been read yet will await the final report for any other findings. 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 If it continues to occur the patient will seek medical attention for that. 02/26/2024 the patient is here for pulmonary follow-up visit. She continues to do well just on the 2.5 mg of prednisone. She has been exercising although. Sometimes she exercises between an hour to an hour 45 minutes. Now with the heat and humidity is becoming hard to exercise. Therefore she is back in off a little bit. I believe does good idea. During the visit we did go for brief walking oximetry the patient maintain a pulse ox between 93-96% with activity. This was a fast pace. This reassuring although she needs to be careful with heat and humidity in the ground ozone. We did talk about the concerns with right now the quality outside. Respiratory exam is clear. No significant wheezing or crackles appreciated at this time. Therefore will hold off any inhalers. If the patient develops any worsening symptoms she will call otherwise follow-up in the spring. She will have an x-ray before that visit. 11/11/2024 the patient is here for a pulmonary follow-up visit. The patient overall has been doing well. She is excited with a new granddaughter. The patient has been having issues with exercise because of a bad hip. But denies any respiratory limitations. She is keeping an eye on it for now and she is getting medical therapy 4. She did have a repeat CT scan of the chest which we personally reviewed. No evidence of any active interstitial lung disease. She does have some chronic findings which appear to be stable. Therefore, she continues on 2.5 mg of prednisone daily. Will try to decrease her medication to 2.5 mg every other day. If she has any increased symptoms she will call. Will follow-up in 6 months with a chest x-ray. I am hopeful that she can not tolerate the lower dose since does not appear to be any active disease at this time. [facility] Medical History (Updated 09/04/23 @ 09:10 by Dustin Abdullahi MD) Dysphagia ILD (interstitial lung disease) Sjogrens syndrome Social History Patient Tobacco Use Status: Former Tobacco user Tobacco use type: Cigarette Years Smoked: 20 years Review of Systems Const Denies night sweats Eyes Reports dry eyes ENT Denies change in voice, Denies dysphagia, Reports dry mouth, Denies lip swelling, Reports nasal congestion, Reports nasal discharge and Denies tongue swelling Card Denies chest pain Resp Reports cough GI Denies abdominal pain and Denies dysphagia Musc Denies no additional complaints Neuro Denies Neuro-related abnormal movements Psych Denies no additional complaints Hilario/Lymph Denies easy bleeding and Denies lymphadenopathy Aller/Immun Denies lip swelling and Denies tongue swelling Physical Exam Vital Signs: Last Vital Signs Pulse 61 11/11/24 10:22 BP 102/50 L 11/11/24 10:22 Pulse Ox 97 11/11/24 10:22 Oxygen Delivery Method Room Air 11/11/24 10:22 BMI result Body Mass Index 27.8 Const General: alert HEENT Mouth: other (DRY) Neck Neck: Yes normal visual inspection, Yes full ROM and Yes no lymphadenopathy Chest Chest palpation & inspection: normal inspection of the chest Resp Effort & Inspection: normal respiratory effort Auscultation: no crackles, no rales, no rhonchi, no wheezes and diminished lung sounds Cardio Rate: regular rate Rhythm: regular rhythm Heart sounds: S1 normal heart sound present and S2 normal heart sound present GI Palpation (GI): Soft to palpation and nontender Auscultation: normal bowel sounds Skin General skin exam: rashes and/or lesions noted Assessment & Plan Assessment & Plan (1) ILD (interstitial lung disease): Code(s): J84.9 - Interstitial pulmonary disease, unspecified Category: Medical (2) Sjogrens syndrome: Code(s): M35.00 - Sjogren syndrome, unspecified Category: Medical Qualifiers: Sjogren's organ involvement: lung involvement Qualified Code(s): M35.02 - Sicca syndrome with lung involvement (3) Dysphagia: Comment: s/p esophageal dilation Code(s): R13.10 - Dysphagia, unspecified Category: Medical Qualifiers: Dysphagia type: unspecified Qualified Code(s): R13.10 - Dysphagia, unspecified (4) Pulmonary nodule: Code(s): R91.1 - Solitary pulmonary nodule Category: Medical Plan decrease prednisone 2.5mg daily->every other day CXR in 6 months F/U 6 months Orders: Orders XR chest 2V Today J84.9 - Interstitial pulmonary disease, unspecified Coding Level of Care Code Est Pt Level 4 (67834) Complex EM visit Add On G2211 Diagnoses ILD (interstitial lung disease) J84.9 Sjogren's syndrome with lung involvement M35.02 Sjogren's organ involvement: lung involvement Dysphagia, unspecified type R13.10 Dysphagia type: unspecified Pulmonary nodule R91.1 Time Spent (min) 17
--- OUTSIDE RECORDS SUMMARY | 2024-11-11 12:24 | XMS_ITS | Encounter Summary ---
Author Organization [facility], Address [address] [place] [address] Phone Care Team Providers Care Dixonac Operator Name Role Phone Tahmina Orta MD Primary Care Provider [phone] Encounter Details Date Type Department Care Team (Late st Contact Info) Description 08/16/2022 Documentation Only [facility], [address] [place] [phone] David Payan MD [address] [place] [phone] Social History Tobacco Use Types Packs/Day Years [...] on filedocumented in this encounter Care Teams Dixonac Operator Relationship Specialty Start Date End Date Tahmina Orta MD [address] [place] [address], [address] [place] [address] PCP - General Radiation Oncology 09/06/22 documented as of this encounter
--- OUTSIDE RECORDS SUMMARY | 2024-11-11 12:24 | XMS_ITS | Encounter Summary ---
Author Organization [facility], Address [address] [place] [address] Phone Care Team Providers Care Experimental Mechanic Spacecraft Name Role Phone Tahmina Orta MD Primary Care Provider Encounter Details Date Type Department Care Team (Late st Contact Info) Description 08/16/2022 Documentation Only [facility], [address] [place] [phone] David Payan MD [address] [place] [phone] Social History Tobacco Use Types Packs/Day Years [...] on filedocumented in this encounter Care Teams Experimental Mechanic Spacecraft Relationship Specialty Start Date End Date Tahmina Orta MD [address] [place] [address], [address] [place] [address] PCP - General Radiation Oncology 09/06/22 documented as of this encounter
--- OUTSIDE RECORDS SUMMARY | 2024-11-11 12:25 | XMS_ITS | Clinical Summary ---
Author Organization [facility] [address] [facility] Address [address] [place] [phone] Phone Care Team Providers Care Wild Life Manager Name Role Phone Kenny Alicea MD Primary Care Provider [phone] Allergies Active Allergy Reactions Criticality Noted Date Comments Egg Low 06/12/2008 Other Reaction(s): Hives/Urticaria She can not get vaccinations created in eggs House Dust 08/08/2021 Peanut 01/11/2012 Medications hydroxychloroqui ne (PLAQUENIL) 200 mg tablet Take 1 tablet (200 mg total) by mouth 1 (one) time each day. 06/20/2021 Active calcium carbonate-cholec alciferol 500 mg-10 mcg (400 unit) per tablet Take by mouth. Active vit A,C and L-hevavw-tsoshmd s (OCUVITE) 300 mcg-200 mg-27 mg-2 mg tablet Take by mouth. Active Active Problems Problem Noted Date Diagnosed Date Fibula fracture 05/20/2020 Overview (09/12/2024): Left: 12/2019 Interstitial lung disease 02/10/2019 Overview (09/12/2024): Onset 09/07 - With autoimmune features: IPAF + NITA,RF, CCP Ab, Sjogren's Ab, occ anti - ds DNA Treated with low-dose prednisone (starting 09/07) -tapered off by December 2020 Hydroxychloroquine added 07/[address] Holley Eye exam [place] 03/08, 03/09 Other specified abnormal immunological findings in serum 08/03/2017 Simple tics 07/06/2017 Overview (09/12/2024): Of head Osteopenia 06/16/2016 Overview (09/12/2024): October 2018 DEXA: LS spine T-score is -1.8. ?? Left Hip T-score is -2.0. Cystocele, midline 05/15/2013 Overview (09/12/2024): 05/15/2013: asymptomatic. Lui Zuniga MD 06/30/2016: still asymptomatic. 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 Tremor 12/07/2005 Encounters Date Type Department Care Team Description 10/08/2024 8:22 AM EST - 10/08/2024 11:59 PM EST Hospital Encounter Radiology Department - [address] [phone] Encounter for screening mammogram for breast cancer Discharge Disposition: Home or Self Care from Last 3 Months Immunizations Name Administration Dates Next Due Influenza trivalent, 0.5mL ( Fluzone High-dose) 65yo and older 07/11/2021,06/25/2020,07/11/2019 Moderna SARS-CoV-2 COVID-19, mRNA, LNP-S, preservative free 11/06/2020,10/07/2020 Pneumococcal conjugate 13 va lent (Prevnar 13, PCV13) 2mo and older 06/16/2016 Pneumococcal polysaccharide 23 valent (Pneumovax 23) 2yo and older 02/06/2012 Td, Unspecified 08/19/2004 Tdap Tetanus diptheria acell ular pertussis (Boostrix; Adacel) 7yo and older 02/06/2012 Zoster Live 05/27/2012 Zoster recombinant (Shingrix ) 19yo and older 02/17/2020,10/03/2019 Surgical History Surgery Date Site/Laterality Comments CHOLECYSTECTOMY PROCEDURE: HISTORICAL CHOLECYSTECTOMY TONSILLECTOMY PROCEDURE: HISTORICAL TONSILLECTOMY; COMMENT: 6th grade CHOLECYSTECTOMY PROCEDURE: ME LAPAROSCOPY SURG CHOLECYSTECTOMY CATARACT EXTRACTION 03/24/2015 Left PROCEDURE: HISTORICAL CATARACT REMOVAL CATARACT EXTRACTION 05/12/2015 Right PROCEDURE: HISTORICAL CATARACT REMOVAL Medical History Medical History Date Comments Allergic rhinitis, cause unspecified 06/27/2006 DX:Allergic rhinitis, cause unspecified Osteoarthritis of hand 07/03/2008 DX:Osteoa rthritis of hand; COMMENT: Also (05/2008) + CCP AB, NITA, anitcentromere AB - ? Additonal rheumatic disease Colon polyps 02/06/2012 DX:Colon polyps Lupus 2016 DX:Lupus Sjogren's syndrome with lung involvement (CMS/HCC) 04/09/2020 DX:Sjogren's syndrome with l palmira involvement (HCC) Fibula fracture 05/20/2020 DX:Fibula fractu re; COMMENT: 12/2019 Covid-19 08/26/2020 DX:COVID-19; COM MENT: Chills, occ cough - mild case Family History Medical History Relation Name Comments Hypertension Brother 1 Other: gout Brother 2 Lung cancer Father Arthritis Mother Hypertension Mother Other: Alzheimer's disease Mother Other: gout Mother Breast cancer Neg Hx Relation Name Status Comments Brother 1 Brother 2 Brother 3 Alive Brother 4 Alive Father (Age 73) Maternal Grandfather Maternal Grandmother Mother (Age 92) Paternal Grandfather Paternal Grandmother Sister Alive Social History Tobacco Use Types Packs/Day Years [...] on file Sexual Orientation Not on file Obstetrics History Para Term AB IAB SAB Ectopic Multiple Livin g Live Births 2 2 2 2 Date Outcome GA Total Labor Labor/2nd/3rd Weight Sex Type Anes PTL Sarah A1 A5 Name Clin Term Term Plan of Treatment Health Maintenance Due Date Last Done Comments Depression Screening 07/29/2022 Falls Risk Assessment 07/29/2022 Medicare Annual Wellness Visit 07/29/2022 Social Influencers of Health Screening 07/29/2022 Hypertension/CHF/CAD Annual BMP Blood Test 10/08/2024 09/06/2022, 10/06/2021 Cholesterol Screening (Lipid Panel) 10/06/2026 10/06/2021 Osteoporosis Screening (Bone Density Screening) 04/27/2031 04/27/2021, 11/11/2018 DTaP,Tdap,and Td Vaccines (4 - Td or Tdap) 12/26/2032 12/26/2022, 02/06/2012, 08/19/2004 Hepatitis C Screening Completed 06/16/2016 Pneumococcal Vaccine: 50+ Years Completed 06/16/2016, 02/06/2012 Zoster Vaccines Completed 02/17/2020, 09/20, 05/27/2012 RSV Immunization Patients 60+ Years Old Completed 09/10/2023 Influenza Vaccine Completed 07/10/2024, , 07/09/2023, Additional history exists COVID-19 Vaccine Completed 08/22/2024, , 02/05/2023, Additional history exists HIB Vaccines Aged Out No longer eligi ble based on patient's age to complete this topic HPV Vaccines Aged Out No longer eligi ble based on patient's age to complete this topic Hepatitis A Vaccines Aged Out No long er eligible based on patient's age to complete this topic Hepatitis B Vaccines Aged Out No long er eligible based on patient's age to complete this topic IPV Vaccines Aged Out No longer eligi ble based on patient's age to complete this topic MMR Vaccines Aged Out No longer eligi ble based on patient's age to complete this topic Meningococcal ACWY Vaccine Aged Out N o longer eligible based on patient's age to complete this topic Meningococcal B Vacine Aged Out No lo nger eligible based on patient's age to complete this topic RSV Immunization Patients Under 20 months Aged Out No longer eligible based on patient's age to complete this topic Varicella Vaccines Aged Out No longer eligible based on patient's age to complete this topic Procedures Procedure Name Priority Date/Time Associated Diagnosis Comments MG MAMMO DIGITAL SCREENING W HIPOLITO BILAT Routine 10/08/2024 8:34 AM EST Encounter for screening mammogram for breast cancer HM ANNUAL BMP BLOOD TEST Routine 10/06/2021 LIPID PANEL Routine 10/06/2021 DXA BONE DENSITY STUDY 1+ SITS AXIAL SKEL Routine 04/27/2021 10:01 AM EDT Other specified disorders of bone density and structure, unspecified site HM HEPATITIS C SCREENING Routine 06/16/2016 from Last 3 Months or Most Recently Relevant to Health Maintenance Results * MG Mammo Digital Screening w Hipolito bilat (10/08/2024 8:34 AM EST) Anatomical Region Laterality Modality Breast Bilateral Mammography 10/08/2024 4:39 PM EST Impressions 10/08/2024 4:43 PM EST 1. No mammographic evidence of malignancy 2. Scattered fibroglandular tissue BI-RADS CATEGORY: 2 - BENIGN RECOMMENDATION: Screening bilateral mammogram is recommended in 1 year. Mammo Location: [facility], [address] [place] [address], [phone], . -------- FINAL REPORT -------- Dictated By: Ninfa Oliveira Dictated Date: 10/08/2024 16:39 ET Assigned Physician: Ninfa Oliveira Reviewed and Electronically Signed By: Ninfa Oliveira Signed Date: 10/08/2024 16:43 ET Workstation ID: [id number] Transcribed By: Self Edit Transcribed Date: 10/08/2024 [...] is recommended in 1 year. Mammo Location: [facility], [address] [place] [address], [id number], . -------- FINAL REPORT -------- Dictated By: Ninfa Oliveira Dictated Date: 10/08/2024 16:39 ET Assigned Physician: Ninfa Oliveira Reviewed and Electronically Signed By: Ninfa Oliveira Signed Date: 10/08/2024 16:43 ET Workstation ID: [id number] Transcribed By: Self Edit Transcribed Date: 10/08/2024 16:39 ET C Hipolito Alicea MD IMG BI PROCEDURES Final Result * Annual BMP Blood Test (10/06/2021) Pathologist [facility] Annual BMP Blood Test abstracted [facility] Provider HEALTH MAINTENANCE Final Result * Lipid panel (10/06/2021) LDL/HDL Ratio 2 0 - 4 Triglycerides 136 0 - 150 mg/dL Cholesterol 184 0 - 200 mg/dL HDL 79 >=40 mg/dL LDL Cholesterol 78 0 - 100 mg/dL Blood Venous blood specimen / Unknown us Historical Provider LAB BLOOD ORDERABLES Deena l Result * DXA BONE DENSITY STUDY 1+ SITS AXIAL SKEL (04/27/2021 10:01 AM EDT) Anatomical Region Laterality Modality Bone Densitometr y 02/01/2021 8:46 AM EDT Narrative 04/27/2021 12:37 PM EDT BONE DENSITY (DEXA) ? Lumbar Spine T-score is -1.7. ?? (SD relative to 20-29 y/o adult) Z-score is 0.7. ??(SD relative to age matched peers) This is considered osteopenia by WHO criteria. Left Hip T-score is -1.9. Z-score is 0.2. This is considered osteopenia by WHO criteria. There is mild levoscoliosis of the lumbar spine. Lateral view of the spine demonstrates vertebral heights to be maintained. IMPRESSION: This patient is considered to have osteopenia. by WHO criteria. This patient has a 27 % risk of major osteoporotic fracture and a 6.9 % risk of hip fracture over the next 10 years. ??(WORLD HEALTH ORGANIZATION FRACTURE RISK ASSESSMENT) [facility] DEPARTMENT OF INTERNAL MEDICINE RECOMMENDS USING NATIONAL OSTEOPOROSIS FOUNDATION (NOF) GUIDELINES IN TREATMENT DECISIONS RELATED TO OSTEOPOROSIS. ??NOF GUIDELINES SUGGEST CONSIDERING TREATMENT FOR POSTMENOPAUSAL WOMEN AND MEN AGED 50 OR OLDER PRESENTING WITH THE FOLLOWING: HISTORY OF HIP OR VERTEBRAL FRACTURE. T SCORE = NEGATIVE 2.5 (DXA) AT THE FEMORAL NECK, TOTAL HIP, OR SPINE, AFTER APPROPRIATE EVALUATION TO EXCLUDE SECONDARY CAUSES. LOW BONE MASS (T SCORE BETWEEN NEGATIVE 1.0 AND NEGATIVE 2.5 AT THE FEMORAL NECK OR SPINE) AND A 10 YEAR PROBABILITY OF A HIP FRACTURE = 3% OR A 10 YEAR PROBABILITY OF A MAJOR OSTEOPOROSIS-RELATED FRACTURE = 20% BASED ON THE US ADAPTED WHO ALGORITHM PLEASE NOTE THAT ALL TREATMENT DECISIONS REQUIRE CLINICAL JUDGMENT AND CONSIDERATION OF INDIVIDUAL PATIENT FACTORS, INCLUDING PATIENT PREFERENCES, COMORBIDITIES, PREVIOUS DRUG USE, RISK FACTORS NOT CAPTURED IN THE FRAX MODEL (E.G., FRAILTY, FALLS, VITAMIN D deficiency, increased bone turnover, interval significant decline in bone density) and possible under-or overestimation of fracture risk by FRAX. Optional alternative screening schedule based on brittney Carr al., [facility] 09/07/2011 for patients with osteopenia (based on hip BMD T score) is as follows: Advanced osteopenia (T scores negative 2.00 to negative 2.49), BMD testing every year Moderate osteopenia (T scores negative 1.50 to negative 1.99), BMD testing every 5 years Mild osteopenia or normal BMD (T scores negative 1.50 and higher), BMD testing every 15 years Procedure Note Candace Ngo MD - 08/08/2022 BONE DENSITY (DEXA) Lumbar Spine T-score is -1.7. (SD relative to 20-29 y/o adult) Z-score is 0.7. (SD relative to age matched peers) This is considered osteopenia by WHO criteria. Left Hip T-score is -1.9. Z-score is 0.2. This is considered osteopenia by WHO criteria. There is mild levoscoliosis of the lumbar spine. Lateral view of the spine demonstrates vertebral heights to bemaintained. IMPRESSION: This patient is considered to have osteopenia. by WHO criteria. Thispatient has a 27 % risk of major osteoporotic fracture and a 6.9 % risk of hip fracture over thenext 10 years. (WORLD HEALTH ORGANIZATION FRACTURE RISK ASSESSMENT) [facility] DEPARTMENT OF INTERNAL MEDICINE RECOMMENDSUSING NATIONAL OSTEOPOROSIS FOUNDATION (NOF) GUIDELINES IN TREATMENT DECISIONS RELATED TOOSTEOPOROSIS. NOF GUIDELINES SUGGEST CONSIDERING TREATMENT FOR POSTMENOPAUSAL WOMEN AND MENAGED 50 OR OLDER PRESENTING WITH THE FOLLOWING: HISTORY OF HIP OR VERTEBRAL FRACTURE. T SCORE = NEGATIVE 2.5 (DXA) AT THE FEMORAL NECK, TOTAL HIP, OR SPINE,AFTER APPROPRIATE EVALUATION TO EXCLUDE SECONDARY CAUSES. LOW BONE MASS (T SCORE BETWEEN NEGATIVE 1.0 AND NEGATIVE 2.5 AT THEFEMORAL NECK OR SPINE) AND A 10 YEAR PROBABILITY OF A HIP FRACTURE = 3% OR A 10 YEAR PROBABILITY OF AMAJOR OSTEOPOROSIS-RELATED FRACTURE = 20% BASED ON THE US ADAPTED WHOALGORITHM PLEASE NOTE THAT ALL TREATMENT DECISIONS REQUIRE CLINICAL JUDGMENT ANDCONSIDERATION OF INDIVIDUAL PATIENT FACTORS, INCLUDING PATIENT PREFERENCES, COMORBIDITIES,PREVIOUS DRUG USE, RISK FACTORS NOT CAPTURED IN THE FRAX MODEL (E.G., FRAILTY, FALLS, VITAMIND deficiency, increased bone turnover, interval significant decline in bone density) andpossible under-or overestimation of fracture risk by FRAX. Optional alternative screening schedule based on Lilly et al., NEJM09/07/2011 for patients with osteopenia (based on hip BMD T score) is as follows: Advanced osteopenia (T scores negative 2.00 to negative 2.49), BMD testingevery year Moderate osteopenia (T scores negative 1.50 to negative 1.99), BMD testingevery 5 years Mild osteopenia or normal BMD (T scores negative 1.50 and higher), BMDtesting every 15 years Nancy Cali MD IMG DXA PROCEDURES F inal Result * Hepatitis C Screening (06/16/2016) [facility] Hepatitis C Screening abstracted Historical Provider HEALTH MAINTENANCE Final Result from Last 3 Months or Most Recently Relevant to Health Maintenance Insurance [place] - [place] MEDIC[place] Care Teams Wild Life Manager Relationship Specialty Start Date End Date Kenny Alicea MD [address] [place] [id number] PCP - General Internal Medicine 03/10/21
--- OUTSIDE RECORDS SUMMARY | 2024-11-11 12:25 | XMS_ITS | Encounter Summary ---
Author Organization [facility], Address [address] [place] [address] Phone Care Team Providers Care Manufacturing Associate Name Role Phone Tahmina Orta MD Primary Care Provider [phone] Encounter Details Date Type Department Care Team (Late st Contact Info) Description 08/16/2022 Documentation Only [facility], [address] [place] [phone] David Payan MD [address] [place] [phone] Social History Tobacco Use Types Packs/Day Years [...] on filedocumented in this encounter Care Teams Manufacturing Associate Relationship Specialty Start Date End Date Tahmina Orta MD [address] [place] [address], [address] [place] [address] PCP - General Radiation Oncology 09/06/22 documented as of this encounter
--- OUTSIDE RECORDS SUMMARY | 2024-11-11 12:25 | XMS_ITS | Encounter Summary ---
Author Organization [facility], Address [address] [place] [address] Phone Care Team Providers Care Field Hand Name Role Phone Tahmina Orta MD Primary Care Provider [phone] Encounter Details Date Type Department Care Team (Late st Contact Info) Description 08/16/2022 Documentation Only [facility], [address] [place] [phone] David Payan MD [address] [place] [phone] Social History Tobacco Use Types Packs/Day Years [...] on filedocumented in this encounter Care Teams Field Hand Relationship Specialty Start Date End Date Tahmina Orta MD [address] [place] [address], [address] [place] [address] PCP - General Radiation Oncology 09/06/22 documented as of this encounter
--- OUTSIDE RECORDS SUMMARY | 2024-11-11 12:25 | XMS_ITS | Encounter Summary ---
Author Organization [facility], Address [address] [place] [address] Phone Care Team Providers Care Supervisor Border Department Name Role Phone Tahmina Orta MD Primary Care Provider [phone] Encounter Details Date Type Department Care Team (Late st Contact Info) Description 08/16/2022 Documentation Only [facility], [address] [place] [phone] David Payan MD [address] [place] [phone] Social History Tobacco Use Types Packs/Day Years [...] on filedocumented in this encounter Care Teams Supervisor Border Department Relationship Specialty Start Date End Date Tahmina Orta MD [address] [place] [address], [address] [place] [address] PCP - General Radiation Oncology 09/06/22 documented as of this encounter
--- OUTSIDE RECORDS SUMMARY | 2024-11-11 12:25 | XMS_ITS | Encounter Summary ---
Author Organization [facility], Address [address] [place] [address] Phone Care Team Providers Care Planting Material Unloader Name Role Phone Tahmina Orta MD Primary Care Provider [phone] Encounter Details Date Type Department Care Team (Late st Contact Info) Description 09/06/2022 Documentation Only [facility], [address] [place] [address] David Payan MD [address] [place] [phone] Social History Tobacco Use Types Packs/Day Years [...] on filedocumented in this encounter Care Teams Planting Material Unloader Relationship Specialty Start Date End Date Tahmina Orta MD [address] [place] [address], [address] [place] [address] PCP - General Radiation Oncology 09/06/22 documented as of this encounter
--- OUTSIDE RECORDS SUMMARY | 2024-11-11 12:25 | XMS_ITS | Clinical Summary ---
Author Organization [facility], Address [address] [place] [address] [place] [address] Phone Care Team Providers Care Vice President Planning Name Role Phone Tahmina Orta MD Primary Care Provider [phone] Allergies Active Allergy Reactions Criticality Noted Date [...] patient's age to complete this topic Insurance [facility] Care Teams Vice President Planning Relationship Specialty Start Date End Date Tahmina Orta MD [address] [place] [address], [address] [place] [address] PCP - General Radiation Oncology 09/06/22
--- OUTSIDE RECORDS SUMMARY | 2024-11-11 12:25 | XMS_ITS | Encounter Summary ---
Author Organization [facility], Address [address] [place] [address] Phone Care Team Providers Care Entry Level Buyer Name Role Phone Tahmina Orta MD Primary Care Provider [phone] Encounter Details Date Type Department Care Team (Late st Contact Info) Description 08/16/2022 Documentation Only [facility], [address] [place] [phone] David Payan MD [address] [place] [phone] Social History Tobacco Use Types Packs/Day Years [...] on filedocumented in this encounter Care Teams Entry Level Buyer Relationship Specialty Start Date End Date Tahmina Orta MD [address] [place] [address], [address] [place] [address] PCP - General Radiation Oncology 09/06/22 documented as of this encounter
== END 2024-11-11 10:56 | disposition home or self-care (01) ==
LOC: HO.HPS 10:19
PROVIDERS: PCP Internal Medicine; Visit Provider Hospitalist
DX: J84.9 Interstitial pulmonary disease, unspecified (principal); M35.02 Sjogren syndrome with lung involvement; R13.10 Dysphagia, unspecified; R91.1 Solitary pulmonary nodule
CPT/HCPCS: 99214

== ENCOUNTER 2025-05-13 08:34 | Outpatient (AMB) | payer BC, SELFPAY ==
[2025-05-13 08:36] VITALS: BP 110/40; PULSE 59; O2SAT 100; BMI 24.3
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
--- OUTSIDE RECORDS SUMMARY | 2025-05-13 09:37 | XMS_ITS | Encounter Summary ---
Author Organization [facility] Address [address] [place] [address] Care Team Providers Care Pipe Straightener Name Role Phone Kenny Alicea MD Primary Care Provider [phone] Encounter Details Date Type Department Care Team (Late st Contact Info) Description 03/14/2025 Lab Requisition [facility] - Main Lab [address] [facility] [place] [address] Beny Llamas MD [address] [place] [address] Essential (primary) hypertension Social History Tobacco Use Types Packs/Day Years [...] Procedure Name Priority Date/Time Associated Diagnosis Comments COMPLETE BLOOD COUNT Routine 03/16/2025 6:16 AM EDT Essential (primary) hypertension BASIC METABOLIC PANEL Routine 03/16/2025 6:16 AM EDT Essential (primary) hypertension documented in this encounter Results * (ABNORMAL) Basic metabolic panel (03/16/2025 6:16 AM EDT) Sodium 127(L) 133 - 145 mmol/L LAB CHEMISTRY METHOD 03/16/2025 11:07 AM [facility] Potassium 4.4 3.5 - 5.5 mmol/L LAB CHEMISTRY METHOD 03/16/2025 11:07 AM [facility] Chloride 95(L) 96 - 110 mmol/L LAB CHEMISTRY METHOD 03/16/2025 11:07 AM [facility] CO2 24 21 - 32 mmol/L LAB CHEMISTRY METHOD 03/16/2025 11:07 AM [facility] Anion Gap 8 3 - 11 LAB CHEMISTRY METHOD 03/16/2025 11:07 AM [facility] Glucose 66(L) 70 - 100 mg/dL LAB CHEMISTRY METHOD 03/16/2025 11:07 AM [facility] BUN 12 5 - 25 mg/dL LAB CHEMISTRY METHOD 03/16/2025 11:07 AM [facility] Creatinine 0.85 0.50 - 1.10 mg/dL LAB CHEMISTRY METHOD 03/16/2025 11:07 AM [facility] eGFR 70 >=60 mL/min/1. 73m2 LAB CHEMISTRY METHOD 03/16/2025 11:07 AM [facility] Comment:Calculation based on the Chronic Kidney Disease Epidemiology Collaboration (CKD-EPI) equation refit without adjustment for race. BUN/Creatinine Ratio 14.1 LAB CHEMISTRY METHOD 03/16/2025 11:07 AM [facility] Calcium 9.0 8.5 - 10.5 mg/dL LAB CHEMISTRY METHOD 03/16/2025 11:07 AM [facility] Blood Venous blood specimen / Unknown Venipuncture / Unknown 03/16/2025 6:16 AM EDT 03/16/2025 9:52 AM EDT Beny Llamas MD LAB BLOOD ORDERABLES Final Resul t [facility] [address] [place] [address], * (ABNORMAL) Complete blood count (03/16/2025 6:16 AM EDT) [facility] Signature WBC 5.8 4.8 - 10.8 K/mcL LAB HEMETOLOGY METHOD 03/16/2025 10:28 AM EDT [facility] RBC 3.00(L) 3.80 - 4.80 M/mcL LAB HEMETOLOGY METHOD 03/16/2025 10:28 AM EDT [facility] Hemoglobin 9.1(L) 11.5 - 16.0 g/dL LAB HEMETOLOGY METHOD 03/16/2025 10:28 AM EDT [facility] Hematocrit 27.8(L) 35.0 - 47.0 % LAB HEMETOLOGY METHOD 03/16/2025 10:28 AM EDT [facility] MCV 91.7 79.0 - 98.0 FL LAB HEMETOLOGY METHOD 03/16/2025 10:28 AM EDT [facility] MCH 30.0 27.0 - 32.0 pcg LAB HEMETOLOGY METHOD 03/16/2025 10:28 AM EDT [facility] MCHC 32.7 32.0 - 37.0 g/dL LAB HEMETOLOGY METHOD 03/16/2025 10:28 AM EDT [facility] RDW 14.4 11.0 - 15.0 % LAB HEMETOLOGY METHOD 03/16/2025 10:28 AM EDT [facility] Platelets 198 130 - 400 K/mcL LAB HEMETOLOGY METHOD 03/16/2025 10:28 AM EDT [facility] MPV 10.1 7.0 - 11.0 FL LAB HEMETOLOGY METHOD 03/16/2025 10:28 AM EDT [facility] NRBC 0.0 <1.0 % LAB HEMETOLOGY METHOD 03/16/2025 10:28 AM EDT [facility] NRBC Absolute 0.00 <0.10 K/mcL LAB HEMETOLOGY METHOD 03/16/2025 10:28 AM EDT [facility] Blood Venous blood specimen / Unknown Venipuncture / Unknown 03/16/2025 6:16 AM EDT 03/16/2025 9:52 AM EDT us Beny Llamas MD LAB BLOOD ORDERABLES Final Resul t [facility] [address] [place] [address], documented in this encounter Visit Diagnoses Diagnosis Essential (primary) hypertension Unspecified essential hypertension documented in this encounter Care Teams Pipe Straightener Relationship Specialty Start Date End Date Kenny Alicea MD [address] [place] [id number] PCP - General Internal Medicine 03/10/21 documented as of this encounter
--- OUTSIDE RECORDS SUMMARY | 2025-05-13 09:37 | XMS_ITS | Encounter Summary ---
Author Organization [facility], Address [address] [place] [address] Phone Care Team Providers Care Acting Instructor Name Role Phone Tahmina Orta MD Primary Care Provider [phone] Encounter Details Date Type Department Care Team (Late st Contact Info) Description 08/16/2022 Documentation Only [facility], [address] [place] [phone] David Payan MD [address] [place] [phone] Social History Tobacco Use Types Packs/Day Years [...] on filedocumented in this encounter Care Teams Acting Instructor Relationship Specialty Start Date End Date Tahmina Orta MD [address] [place] [address], [address] [place] [address] PCP - General Radiation Oncology 09/06/22 documented as of this encounter
--- OUTSIDE RECORDS SUMMARY | 2025-05-13 09:37 | XMS_ITS | Encounter Summary ---
Author Organization [facility] Address [address] [place] [address] Care Team Providers Care Manager Fine Dining Name Role Phone Kenny Alicea MD Primary Care Provider [phone] Encounter Details Date Type Department Care Team (Late st Contact Info) Description 02/25/2025 Lab Requisition [facility] - Main Lab [address] [facility] [place] [address] Beny Llamas MD [address] [place] [address] Essential (primary) hypertension Social History Tobacco Use [...] Associated Diagnosis Comments COMPLETE BLOOD COUNT Routine 02/25/2025 5:42 AM EDT Essential (primary) hypertension BASIC METABOLIC PANEL Routine 02/25/2025 5:42 AM EDT Essential (primary) hypertension documented in this encounter Results * (ABNORMAL) Complete blood count (02/25/2025 5:42 AM EDT) WBC 6.8 4.8 - 10.8 K/mcL LAB HEMETOLOGY METHOD 02/25/2025 10:28 AM [facility] RBC 3.00(L) 3.80 - 4.80 M/mcL LAB HEMETOLOGY METHOD 02/25/2025 10:28 AM [facility] Hemoglobin 9.2(L) 11.5 - 16.0 g/dL LAB HEMETOLOGY METHOD 02/25/2025 10:28 AM [facility] Hematocrit 26.9(L) 35.0 - 47.0 % LAB HEMETOLOGY METHOD 02/25/2025 10:28 AM [facility] MCV 90.6 79.0 - 98.0 FL LAB HEMETOLOGY METHOD 02/25/2025 10:28 AM [facility] MCH 31.0 27.0 - 32.0 pcg LAB HEMETOLOGY METHOD 02/25/2025 10:28 AM [facility] MCHC 34.2 32.0 - 37.0 g/dL LAB HEMETOLOGY METHOD 02/25/2025 10:28 AM [facility] RDW 14.2 11.0 - 15.0 % LAB HEMETOLOGY METHOD 02/25/2025 10:28 AM [facility] Platelets 228 130 - 400 K/mcL LAB HEMETOLOGY METHOD 02/25/2025 10:28 AM [facility] MPV 9.7 7.0 - 11.0 FL LAB HEMETOLOGY METHOD 02/25/2025 10:28 AM [facility] NRBC 0.0 <1.0 % LAB HEMETOLOGY METHOD 02/25/2025 10:28 AM [facility] NRBC Absolute 0.00 <0.10 K/mcL LAB HEMETOLOGY METHOD 02/25/2025 10:28 AM [facility] Blood Venous blood specimen / Unknown Venipuncture / Unknown 02/25/2025 5:42 AM EDT 02/25/2025 9:31 AM EDT Beny Lalmas MD LAB BLOOD ORDERABLES Final Resul t [facility] [address] [place] [address], [place] [phone] * (ABNORMAL) Basic metabolic panel (02/25/2025 5:42 AM EDT) Sodium 130(L) 133 - 145 mmol/L LAB CHEMISTRY METHOD 02/25/2025 12:39 PM [facility] Potassium 4.4 3.5 - 5.5 mmol/L LAB CHEMISTRY METHOD 02/25/2025 12:39 PM [facility] Chloride 96 96 - 110 mmol/L LAB CHEMISTRY METHOD 02/25/2025 12:39 PM [facility] CO2 23 21 - 32 mmol/L LAB CHEMISTRY METHOD 02/25/2025 12:39 PM [facility] Anion Gap 11 3 - 11 LAB CHEMISTRY METHOD 02/25/2025 12:39 PM [facility] Glucose 77 70 - 100 mg/dL LAB CHEMISTRY METHOD 02/25/2025 12:39 PM [facility] BUN 16 5 - 25 mg/dL LAB CHEMISTRY METHOD 02/25/2025 12:39 PM [facility] Creatinine 0.90 0.50 - 1.10 mg/dL LAB CHEMISTRY METHOD 02/25/2025 12:39 PM [facility] eGFR 66 >=60 mL/min/1. 73m2 LAB CHEMISTRY METHOD 02/25/2025 12:39 PM [facility] Comment:Calculation based on the Chronic Kidney Disease Epidemiology Collaboration (CKD-EPI) equation refit without adjustment for race. BUN/Creatinine Ratio 17.8 LAB CHEMISTRY METHOD 02/25/2025 12:39 PM EDT [facility] Calcium 9.0 8.5 - 10.5 mg/dL LAB CHEMISTRY METHOD 02/25/2025 12:39 PM EDT [facility] Blood Venous blood specimen / Unknown Venipuncture / Unknown 02/25/2025 5:42 AM EDT 02/25/2025 9:31 AM EDT us Beny Llamas MD LAB BLOOD ORDERABLES Final Resul t [facility] [address] [place] [address], documented in this encounter Visit Diagnoses Diagnosis Essential (primary) hypertension Unspecified essential hypertension documented in this encounter Care Teams Manager Fine Dining Relationship Specialty Start Date End Date Kenny Alicea MD [address] [place] [id number] PCP - General Internal Medicine 03/10/21 documented as of this encounter
--- OUTSIDE RECORDS SUMMARY | 2025-05-13 09:37 | XMS_ITS | Clinical Summary ---
Author Organization [facility], Address [address] [place] [address] [place] [address] Phone Care Team Providers Care Production Director Name Role Phone Tahmina Orta MD Primary Care Provider [phone] Allergies Active Allergy Reactions Criticality Noted Date [...] Date Last Done Comments Influenza Vaccine (#1) 2025 Pneumococcal Vaccine: 50+ Years Completed 06/16/2016, 02/06/2012 Hepatitis B Vaccine Aged Out No longe r eligible based on patient's age to complete this topic Insurance [facility] Care Teams Production Director Relationship Specialty Start Date End Date Tahmina Orta MD [address] [place] [address], [address] [place] [address] PCP - General Radiation Oncology 09/06/22
--- OUTSIDE RECORDS SUMMARY | 2025-05-13 09:37 | XMS_ITS | Encounter Summary ---
Author Organization [facility], Address [address] [place] [address] Phone Care Team Providers Care Vallez Filter Operator Name Role Phone Tahmina Orta MD Primary Care Provider [phone] Encounter Details Date Type Department Care Team (Late st Contact Info) Description 08/16/2022 Documentation Only [facility], [address] [place] [phone] David Payan MD [address] [place] [phone] Social History Tobacco Use Types Packs/Day Years [...] on filedocumented in this encounter Care Teams Vallez Filter Operator Relationship Specialty Start Date End Date Tahmina Orta MD [address] [place] [address], [address] [place] [address] PCP - General Radiation Oncology 09/06/22 documented as of this encounter
--- OUTSIDE RECORDS SUMMARY | 2025-05-13 09:37 | XMS_ITS | Clinical Summary ---
Author Organization [facility] Address [address] [place] [address] Phone Care Team Providers Care Roustabout Pusher Name Role Phone Beckie Escobedo NP Primary Care Provider [phone] Encounters Date Type Department Care Team Description 04/02/2025 Orders Only [facility] Department of [place]rology [address], [address] [place] [address] Beckie Escobedo NP Cognitive disorder (Primary Dx); High cerebrospinal fluid 14-3-3 protein; Altered mental status, unspecified altered mental status type; Hypoxia; Hallucinations; Brain mass; Hyponatremia from Last 3 Months Social History Tobacco Use Types Packs/Day Years Used Date Smoking Tobacco: Never Assessed Education Answer Date Recorded Are you interested in more education? Not on keo e 03/02/2025 Are you concerned about learning? Not on file 03/02/2025 No 03/02/2025 No 03/02/2025 Digital Access Answer Date Recorded No 03/02/2025 No 03/02/2025 Reliable internet access at home? Not on file 03/02/2025 Device with a working camera? Not on file Comments Unknown Sex and Gender Information Value Date Recorded Sex Assigned at Not on file Legal Sex Female 8:50 AM EDT Gender Identity Not on file Sexual Orientation Not on file Plan of Treatment Upcoming Encounters Date Type Department Care Team (Late st Contact Info) Description 05/20/2025 4:00 PM EDT Office Visit [facility] Department of Neurology [address], [address] [place] [address] Building Construction Professor, Laurel Franz MD [address] [place] [id number] [email or web address] Maintenance Due Date Last Done Comments Adult Td,Tdap Booster 1946 DEPRESSION SCREENING 1958 SMOKING Hx and SMOKELESS TOB ACCO SCREENING 1959 HEPATITIS C SCREENING 1964 PNEUMOCOCCAL VACCINES (50+ y ears) (1 of 1 - PCV) 1996 OSTEOPOROSIS SCREENING INITI AL (ONE-TIME) 2011 ZOSTER VACCINES (2 of 3) 07/22/2012 05/27/2012 RSV VACCINE (1 - 1-dose 75+ series) 2021 INFLUENZA VACCINE (#1) 2025 COVID-19 VACCINE (1 - 2023-2 5 season) 2025 LIPID PANEL 10/06/2026 10/06/2021 HEPATITIS A VACCINES Aged Out No long er eligible based on patient's age to complete this topic HIB VACCINES Aged Out No longer eligi ble based on patient's age to complete this topic MENINGOCOCCAL VACCINES (ACWY) Aged Out No longer eligible based on patient's age to complete this topic MENINGOCOCCAL VACCINES (B) Aged Out N o longer eligible based on patient's age to complete this topic Medical Devices Not on file Insurance [place] MEDICARE PPO [place] [address] [place] [address] MEDICARE PPO [place]UE [place] [place] [address] MED[place]ARE PPO [place] [place] [address] MEDICARE PPO BLUE REPLACEMENT [place] BLUE REPLACEMENT Care Teams Roustabout Pusher Relationship Specialty Start Date End Date Beckie Escobedo NP [address] [place] [address] PCP - General Nurse Practitioner 03/02/25 Additional Source Comments The information contained in this document represents components of the legal health record. It is not the complete legal health record.[facility]
--- OUTSIDE RECORDS SUMMARY | 2025-05-13 09:37 | XMS_ITS | Encounter Summary ---
Author Organization [facility], Address [address] [place] [address] Phone Care Team Providers Care [facility] Name Role Phone Tahmina Orta MD Primary Care Provider [phone] Encounter Details Date Type Department Care Team (Late st Contact Info) Description 08/16/2022 Documentation Only [facility], [address] [place] [id number] David Payan MD [address] [place] [phone] Social History Tobacco Use Types Packs/Day Years [...] on filedocumented in this encounter Care Teams [facility] Relationship Specialty Start Date End Date Tahmina Orta MD [address] [place] [address], [address] [place] [address] PCP - General Radiation Oncology 09/06/22 documented as of this encounter
--- OUTSIDE RECORDS SUMMARY | 2025-05-13 09:37 | XMS_ITS | Encounter Summary ---
Author Organization [facility] Address [address] [place] [address] Care Team Providers Care Elevator Constructor Electric Name Role Phone Kenny Alicea MD Primary Care Provider [phone] Encounter Details Date Type Department Care Team (Late st Contact Info) Description 03/08/2025 Lab Requisition [facility] - Main Lab [address] [facility] [place] [address] Beny Llamas MD [address] [place] [address] Essential (primary) hypertension Social History Tobacco Use [...] Associated Diagnosis Comments COMPLETE BLOOD COUNT Routine 03/09/2025 6:48 AM EDT Essential (primary) hypertension BASIC METABOLIC PANEL Routine 03/09/2025 6:48 AM EDT Essential (primary) hypertension documented in this encounter Results * (ABNORMAL) Basic metabolic panel (03/09/2025 6:48 AM EDT) Sodium 129(L) 133 - 145 mmol/L LAB CHEMISTRY METHOD 03/09/2025 12:01 PM [facility] Potassium 4.3 3.5 - 5.5 mmol/L LAB CHEMISTRY METHOD 03/09/2025 12:01 PM [facility] Chloride 98 96 - 110 mmol/L LAB CHEMISTRY METHOD 03/09/2025 12:01 PM [facility] CO2 21 21 - 32 mmol/L LAB CHEMISTRY METHOD 03/09/2025 12:01 PM [facility] Anion Gap 10 3 - 11 LAB CHEMISTRY METHOD 03/09/2025 12:01 PM [facility] Glucose 67(L) 70 - 100 mg/dL LAB CHEMISTRY METHOD 03/09/2025 12:01 PM [facility] BUN 10 5 - 25 mg/dL LAB CHEMISTRY METHOD 03/09/2025 12:01 PM [facility] Creatinine 0.85 0.50 - 1.10 mg/dL LAB CHEMISTRY METHOD 03/09/2025 12:01 PM [facility] eGFR 70 >=60 mL/min/1. 73m2 LAB CHEMISTRY METHOD 03/09/2025 12:01 PM [facility] Comment:Calculation based on the Chronic Kidney Disease Epidemiology Collaboration (CKD-EPI) equation refit without adjustment for race. BUN/Creatinine Ratio 11.8 LAB CHEMISTRY METHOD 03/09/2025 12:01 PM [facility] Calcium 9.0 8.5 - 10.5 mg/dL LAB CHEMISTRY METHOD 03/09/2025 12:01 PM [facility] Blood Venous blood specimen / Unknown Venipuncture / Unknown 03/09/2025 6:48 AM EDT 03/09/2025 9:55 AM EDT us Beny Llamas MD LAB BLOOD ORDERABLES Final Resul t [facility] [address] [place] [address], * (ABNORMAL) Complete blood count (03/09/2025 6:48 AM EDT) [facility] WBC 6.0 4.8 - 10.8 K/mcL LAB HEMETOLOGY METHOD 03/09/2025 10:48 AM EDT [facility] RBC 3.30(L) 3.80 - 4.80 M/mcL LAB HEMETOLOGY METHOD 03/09/2025 10:48 AM EDT [facility] Hemoglobin 9.7(L) 11.5 - 16.0 g/dL LAB HEMETOLOGY METHOD 03/09/2025 10:48 AM EDT [facility] Hematocrit 29.1(L) 35.0 - 47.0 % LAB HEMETOLOGY METHOD 03/09/2025 10:48 AM EDT [facility] MCV 89.5 79.0 - 98.0 FL LAB HEMETOLOGY METHOD 03/09/2025 10:48 AM EDT [facility] MCH 29.8 27.0 - 32.0 pcg LAB HEMETOLOGY METHOD 03/09/2025 10:48 AM EDT [facility] MCHC 33.3 32.0 - 37.0 g/dL LAB HEMETOLOGY METHOD 03/09/2025 10:48 AM EDT [facility] RDW 14.4 11.0 - 15.0 % LAB HEMETOLOGY METHOD 03/09/2025 10:48 AM EDT [facility] Platelets 209 130 - 400 K/mcL LAB HEMETOLOGY METHOD 03/09/2025 10:48 AM EDT [facility] MPV 9.8 7.0 - 11.0 FL LAB HEMETOLOGY METHOD 03/09/2025 10:48 AM EDT [facility] NRBC 0.0 <1.0 % LAB HEMETOLOGY METHOD 03/09/2025 10:48 AM EDT [facility] NRBC Absolute 0.00 <0.10 K/mcL LAB HEMETOLOGY METHOD 03/09/2025 10:48 AM EDT [facility] Blood Venous blood specimen / Unknown Venipuncture / Unknown 03/09/2025 6:48 AM EDT 03/09/2025 9:55 AM EDT us Beny Llamas MD LAB BLOOD ORDERABLES Final Resul t [facility] [address] [place] [address], documented in this encounter Visit Diagnoses Diagnosis Essential (primary) hypertension Unspecified essential hypertension documented in this encounter Care Teams Elevator Constructor Electric Relationship Specialty Start Date End Date Kenny Alicea MD [address] [place] [id number] PCP - General Internal Medicine 03/10/21 documented as of this encounter
--- OUTSIDE RECORDS SUMMARY | 2025-05-13 09:37 | XMS_ITS ---
Author Name [facility] Organization Unknown Care Team Organization Name Specialty Phone Email Start Date End Da te [facility] Termed, PROVIDER Primary Care 06/27/202203/20
--- OUTSIDE RECORDS SUMMARY | 2025-05-13 09:37 | XMS_ITS | Clinical Summary ---
Author Organization [facility] [address] [facility] Address [address] [place] [phone] Phone Care Team Providers Care Therapist Rrt Name Role Phone Kenny Alicea MD Primary Care Provider [phone] Allergies Active Allergy Reactions Criticality Noted Date [...] Take by mouth. Active vit A,C and I-fkhwwi-bwhiiox s (OCUVITE) 300 mcg-200 mg-27 mg-2 mg tablet Take by mouth. Active Active Problems Problem Noted Date Diagnosed Date Fibula fracture 05/20/2020 Overview (09/12/2024): Left: 12/2019 Interstitial lung disease ([facility]/HCC V24, [facility]/HCC V28) 02/10/2019 Overview (09/12/2024): Onset 09/07 - With [...] 2018 DEXA: LS spine T-score is -1.8. Left Hip T-score is -2.0. Cystocele, midline 05/15/2013 Overview (09/12/2024): 05/15/2013: asymptomatic. Lui Zuniga MD 06/30/2016: still asymptomatic. 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 Tremor 12/07/2005 Encounters Date Type Department Care Team Description 03/22/2025 Lab Requisition [facility] [address] [place] [address] Beny Llamas MD Essential (primary) hypertension 03/14/2025 Lab Requisition [facility] [address] [place] [address] Beny Llamas MD Essential (primary) hypertension 03/08/2025 Lab Requisition [facility] [address] [place] [address] Beny Llamas MD Essential (primary) hypertension 02/27/2025 Lab Requisition [facility] [address] [place] [address] Beny Llamas MD Essential (primary) hypertension 02/25/2025 Lab Requisition [facility] Lab [address] [place] [address] Beny Llamas MD Essential (primary) hypertension 02/11/2025 Lab Requisition [facility] - Main Lab [address] [facility] [place] [address] Beny Llamas MD Altered mental status, unspecified; Essential (primary) hypertension from Last 3 Months Immunizations Name Administration [...] HISTORICAL TONSILLECTOMY; COMMENT: 6th grade CHOLECYSTECTOMY PROCEDURE: SC LAPAROSCOPY SURG CHOLECYSTECTOMY CATARACT EXTRACTION 03/24/2015 Left [...] 2016 DX:Lupus Sjogren's syndrome with lung involvement ([facility]/HCC V24, CMS/HCC V28) 04/09/2020 DX:Sjogren's syndrome with l palmira involvement ([facility]) Fibula fracture 05/20/2020 DX:Fibula fractu re; COMMENT: [...] Health Maintenance Due Date Last Done Comments Falls Risk Assessment 07/29/2022 Medicare Annual Wellness Visit 07/29/2022 Social Influencers of Health Screening 07/29/2022 Depression Screening 08/20/2024 COVID-19 Vaccine (9 - Moderna risk season) 2025 08/22/2024, 06/14/2023, 02/05/2023, Additional history exists Influenza Vaccine (#1) 2025 , 07/09/2023, 07/09/2023, Additional history exists Hypertension/CHF/CAD Annual BMP Blood Test 03/16/2026 03/16/2025, 03/09/2025, 03/02/2025, Additional history exists Cholesterol Screening (Lipid Panel) 10/06/2026 10/06/2021 Osteoporosis Screening (Bone Density Screening) 04/27/2031 04/27/2021, 11/11/2018 DTaP,Tdap,and Td Vaccines (4 - Td or Tdap) 12/26/2032 12/26/2022, 02/06/2012, 08/19/2004 Hepatitis C Screening Completed 06/16/2016 Pneumococcal Vaccine: 50+ Years Completed 06/16/2016, 02/06/2012 Zoster Vaccines Completed 02/17/2020, 09/20, 05/27/2012 RSV Immunization Adult Patients Completed 09/10/2023 HIB Vaccines Aged Out No longer eligi [...] age to complete this topic Meningococcal B Vaccine Aged Out No l onger eligible based on patient's age to complete this topic RSV Immunization Patients Under 20 months Aged Out No longer eligible based on patient's age to complete this topic Varicella Vaccines Aged Out No longer eligible based on patient's age to complete this topic Procedures Procedure Name Priority Date/Time Associated Diagnosis Comments BASIC METABOLIC PANEL Routine 03/16/2025 6:16 AM EDT Essential (primary) hypertension COMPLETE BLOOD COUNT Routine 03/16/2025 6:16 AM EDT Essential (primary) hypertension BASIC METABOLIC PANEL Routine 03/09/2025 6:48 AM EDT Essential (primary) hypertension COMPLETE BLOOD COUNT Routine 03/09/2025 6:48 AM EDT Essential (primary) hypertension BASIC METABOLIC PANEL Routine 03/02/2025 6:08 AM EDT Essential (primary) hypertension COMPLETE BLOOD COUNT Routine 03/02/2025 6:08 AM EDT Essential (primary) hypertension COMPLETE BLOOD COUNT Routine 02/25/2025 5:42 AM EDT Essential (primary) hypertension BASIC METABOLIC PANEL Routine 02/25/2025 5:42 AM EDT Essential (primary) hypertension CBC WITH AUTO DIFFERENTIAL Routine 02/11/2025 7:50 AM EDT Altered mental status, unspecified Essential (primary) hypertension FOLATE Routine 02/11/2025 7:50 AM EDT Altered mental status, unspecified Essential (primary) hypertension VITAMIN B12 Routine 02/11/2025 7:50 AM EDT Altered mental status, unspecified Essential (primary) hypertension THYROID STIMULATING HORMONE Routine 02/11/2025 7:50 AM EDT Altered mental status, unspecified Essential (primary) hypertension BASIC METABOLIC PANEL Routine 02/11/2025 7:50 AM EDT Altered mental status, unspecified Essential (primary) hypertension CBC AND DIFFERENTIAL Routine 02/11/2025 7:50 AM EDT Altered mental status, unspecified Essential (primary) hypertension LIPID PANEL Routine 10/06/2021 DXA BONE DENSITY STUDY 1+ SITS AXIAL SKEL Routine 04/27/2021 10:01 AM EDT Other specified disorders of bone density and structure, unspecified site HEPATITIS C SCREENING Routine 06/16/2016 from Last 3 Months or Most Recently Relevant to Health Maintenance Results * (ABNORMAL) Complete blood count (03/16/2025 6:16 AM EDT) Only the most recent of4 resultswithin the time period is included. WBC 5.8 4.8 - 10.8 K/mcL LAB HEMETOLOGY METHOD 03/16/2025 10:28 AM EDT [facility] RBC 3.00(L) 3.80 - 4.80 M/mcL LAB HEMETOLOGY METHOD 03/16/2025 10:28 AM EDT [facility] Hemoglobin 9.1(L) 11.5 - 16.0 g/dL LAB HEMETOLOGY METHOD 03/16/2025 10:28 AM EDT [facility] Hematocrit 27.8(L) 35.0 - 47.0 % LAB HEMETOLOGY METHOD 03/16/2025 10:28 AM EDT [facility] MCV 91.7 79.0 - 98.0 FL LAB HEMETOLOGY METHOD 03/16/2025 10:28 AM EDT [facility] MCH 30.0 27.0 - 32.0 pcg LAB HEMETOLOGY METHOD 03/16/2025 10:28 AM EDT [facility] MCHC 32.7 32.0 - 37.0 g/dL LAB HEMETOLOGY METHOD 03/16/2025 10:28 AM EDT [facility] RDW 14.4 11.0 - 15.0 % LAB HEMETOLOGY METHOD 03/16/2025 10:28 AM EDT [facility] Platelets 198 130 - 400 K/mcL LAB HEMETOLOGY METHOD 03/16/2025 10:28 AM EDT [facility] MPV 10.1 7.0 - 11.0 FL LAB HEMETOLOGY METHOD 03/16/2025 10:28 AM EDT [facility] NRBC 0.0 <1.0 % LAB HEMETOLOGY METHOD 03/16/2025 10:28 AM EDT [facility] NRBC Absolute 0.00 <0.10 K/mcL LAB HEMETOLOGY METHOD 03/16/2025 10:28 AM T [facility] Blood Venous blood specimen / Unknown Venipuncture / Unknown 03/16/2025 6:16 AM EDT 03/16/2025 9:52 AM EDT us Beny Llamas MD LAB BLOOD ORDERABLES Final Resul t [facility] [address] [place] [address], * (ABNORMAL) Basic metabolic panel (03/16/2025 6:16 AM EDT) Only the most recent of5 resultswithin the time period is included. Sodium 127(L) 133 - 145 mmol/L LAB CHEMISTRY METHOD 03/16/2025 11:07 AM [facility] Potassium 4.4 3.5 - 5.5 mmol/L LAB CHEMISTRY METHOD 03/16/2025 11:07 AM [facility] Chloride 95(L) 96 - 110 mmol/L LAB CHEMISTRY METHOD 03/16/2025 11:07 AM [facility] CO2 24 21 - 32 mmol/L LAB CHEMISTRY METHOD 03/16/2025 11:07 AM [facility] Anion Gap 8 3 - 11 LAB CHEMISTRY METHOD 03/16/2025 11:07 AM [facility] Glucose 66(L) 70 - 100 mg/dL LAB CHEMISTRY METHOD 03/16/2025 11:07 AM [facility] BUN 12 5 - 25 mg/dL LAB CHEMISTRY METHOD 03/16/2025 11:07 AM [facility] Creatinine 0.85 0.50 - 1.10 mg/dL LAB CHEMISTRY METHOD 03/16/2025 11:07 AM [facility] eGFR 70 >=60 mL/min/1. 73m2 LAB CHEMISTRY METHOD 03/16/2025 11:07 AM [facility] Comment:Calculation based on the Chronic Kidney Disease Epidemiology Collaboration (CKD-EPI) equation refit without adjustment for race. BUN/Creatinine Ratio 14.1 LAB CHEMISTRY METHOD 03/16/2025 11:07 AM [facility] Calcium 9.0 8.5 - 10.5 mg/dL LAB CHEMISTRY METHOD 03/16/2025 11:07 AM [facility] Blood Venous blood specimen / Unknown Venipuncture / Unknown 03/16/2025 6:16 AM EDT 03/16/2025 9:52 AM EDT us Beny Llamas MD LAB BLOOD ORDERABLES Final Resul t [facility] [address] [place] [address], * (ABNORMAL) CBC auto differential (02/11/2025 7:50 AM EDT) WBC 7.4 4.8 - 10.8 K/mcL LAB HEMETOLOGY METHOD 02/11/2025 10:32 AM EDT [facility] RBC 3.40(L) 3.80 - 4.80 M/mcL LAB [facility]EMETOLOGY METHOD [facility] Hemoglobin 10.2(L) 11.5 - 16.0 g/dL LAB HEMETOLOGY METHOD 02/11/2025 10:32 AM T [facility] Hematocrit 29.9(L) 35.0 - 47.0 % LAB HEMETOLOGY METHOD 02/11/2025 10:32 AM T [facility] MCV 89.0 79.0 - 98.0 FL LAB HEMETOLOGY METHOD 02/11/2025 10:32 AM EDT [facility] MCH 30.4 27.0 - 32.0 pcg LAB HEMETOLOGY METHOD 02/11/2025 10:32 AM T [facility] MCHC 34.1 32.0 - 37.0 g/dL LAB HEMETOLOGY METHOD 02/11/2025 10:32 AM [facility] RDW 13.5 11.0 - 15.0 % LAB HEMETOLOGY METHOD 02/11/2025 10:32 AM [facility] Platelets 207 130 - 400 K/mcL LAB HEMETOLOGY METHOD 02/11/2025 10:32 AM [facility] MPV 10.3 7.0 - 11.0 FL LAB HEMETOLOGY METHOD 02/11/2025 10:32 AM [facility] NRBC 0.0 <1.0 % LAB HEMETOLOGY METHOD 02/11/2025 10:32 AM [facility] NRBC Absolute 0.00 <0.10 K/mcL LAB HEMETOLOGY METHOD 02/11/2025 10:32 AM [facility] Neutrophils Relative 73.1 % LAB HEMETOLOGY METHOD 02/11/2025 10:32 AM [facility] Lymphocytes Relative 13.9 % LAB HEMETOLOGY METHOD 02/11/2025 10:32 AM [facility] Monocytes Relative 8.4 % LAB HEMETOLOGY METHOD 02/11/2025 10:32 AM [facility] Eosinophils Relative 3.0 % LAB HEMETOLOGY METHOD 02/11/2025 10:32 AM [facility] Basophils Relative 0.3 % LAB HEMETOLOGY METHOD 02/11/2025 10:32 AM [facility] Immature Granulocytes Relative 1.3 % LAB HEMETOLOGY METHOD 02/11/2025 10:32 AM [facility] Neutrophils Absolute 5.43 1.50 - 7.00 K/mcL LAB HEMETOLOGY METHOD 02/11/2025 10:32 AM [facility] Lymphocytes Absolute 1.03 1.00 - 5.00 K/mcL LAB HEMETOLOGY METHOD 02/11/2025 10:32 AM [facility] Monocytes Absolute 0.62 0.20 - 1.00 K/mcL LAB HEMETOLOGY METHOD 02/11/2025 10:32 AM [facility] Eosinophils Absolute 0.22 0.00 - 0.50 K/mcL LAB HEMETOLOGY METHOD 02/11/2025 10:32 AM EDT [facility] Basophils Absolute 0.02 0.00 - 0.20 K/[facility] LAB HEMETOLOGY METHOD 02/11/2025 10:32 AM EDT [facility] Immature Granulocytes Absolute 0.10(H) 0.00 - 0.03 K/[facility] LAB HEMETOLOGY METHOD 02/11/2025 10:32 AM EDT [facility] Blood Venous blood specimen / Unknown Venipuncture / Unknown 02/11/2025 7:50 AM EDT 02/11/2025 10:05 AM EDT us Beny Llamas MD LAB BLOOD ORDERABLES Final Resul t Performing Organization Address [facility]/ZIP Co de Phone Number [facility] [address] [place] [address], [place] [phone] * (ABNORMAL) Thyroid stimulating hormone (02/11/2025 7:50 AM EDT) TSH 4.87(H) 0.40 - 4.00 mcIU/mL LAB CHEMISTRY METHOD 02/11/2025 1:15 PM EDT [facility] Blood Venous blood specimen / Unknown Venipuncture / Unknown 02/11/2025 7:50 AM EDT 02/11/2025 10:05 AM EDT us Beny Llamas MD LAB BLOOD ORDERABLES Final Resul t [facility] [address] [place] [address], [place] [phone] * (ABNORMAL) Folate (02/11/2025 7:50 AM EDT) Folate >20.0(H) 2.8 - 17.0 ng/ml LAB CHEMISTRY METHOD 02/11/2025 12:21 PM EDT [facility] Blood Venous blood specimen / Unknown Venipuncture / Unknown 02/11/2025 7:50 AM EDT 02/11/2025 10:05 AM EDT us Beny Llamas MD LAB BLOOD ORDERABLES Final Resul t Performing Organization Address City/[facility]/ZIP Co de Phone Number [facility] [address] [place] [address], [place] [phone] * (ABNORMAL) Vitamin B12 (02/11/2025 7:50 AM EDT) [facility] Vitamin B-12 1,700(H) 250 - 900 pcg/mL LAB CHEMISTRY METHOD 02/11/2025 12:21 PM EDT [facility] Blood Venous blood specimen / Unknown Venipuncture / Unknown 02/11/2025 7:50 AM EDT 02/11/2025 10:05 AM EDT us Beny Llamas MD LAB BLOOD ORDERABLES Final Resul t Performing Organization Address City/[facility]/ZIP Co de Phone Number [facility] [address] [place] [address], [place] [phone] * Lipid panel (10/06/2021) [facility] LDL/HDL Ratio 2 0 - 4 Triglycerides 136 0 - 150 mg/dL Cholesterol 184 0 - 200 mg/dL HDL 79 >=40 mg/dL LDL Cholesterol 78 0 - 100 mg/dL Blood Venous blood specimen / Unknown us Lauryn Pulliam MD LAB BLOOD ORDERABLES Deena l Result * DXA BONE DENSITY STUDY 1+ SITS AXIAL SKEL (04/27/2021 10:01 AM EDT) Anatomical Region Laterality Modality Bone Densitometr y 02/01/2021 8:46 AM EDT Narrative 04/27/2021 12:37 PM EDT BONE DENSITY (DEXA) Lumbar Spine T-score is [...] hip fracture over the next 10 years. ([employer] FRACTURE RISK ASSESSMENT) [facility] DEPARTMENT OF INTERNAL MEDICINE RECOMMENDS USING NATIONAL OSTEOPOROSIS FOUNDATION (NOF) GUIDELINES IN TREATMENT DECISIONS RELATED TO OSTEOPOROSIS. NOF GUIDELINES SUGGEST CONSIDERING TREATMENT FOR POSTMENOPAUSAL [...] FRAX. Optional alternative screening schedule based on viki Carr., [facility] 09/07/2011 for patients with osteopenia (based on [...] ([employer] FRACTURE RISK ASSESSMENT) [facility] DEPARTMENT OF INTERNAL MEDICINE RECOMMENDSUSING NATIONAL OSTEOPOROSIS [...] screening schedule based on brittney Carr al., NEJM09/07/2011 for patients with osteopenia (based on hip BMD T score) is as follows: Advanced osteopenia (T scores negative 2.00 to negative 2.49), BMD testingevery year Moderate osteopenia (T scores negative 1.50 to negative 1.99), BMD testingevery 5 years Mild osteopenia or normal BMD (T scores negative 1.50 and higher), BMDtesting every 15 years us Nancy Cali MD IMG DXA PROCEDURES F inal Result * Hepatitis C Screening (06/16/2016) Hepatitis C Screening abstracted Historical Provider HEALTH MAINTENANCE Final Result from Last 3 Months or Most Recently Relevant to Health Maintenance Insurance [employer] [place] MEDICARE ADVANTAGE Care Teams Therapist Rrt Relationship Specialty Start Date End Date Kenny Alicea MD [address] [place] [address] PCP - General Internal Medicine 03/10/21
--- OUTSIDE RECORDS SUMMARY | 2025-05-13 09:37 | XMS_ITS | Encounter Summary ---
Author Organization [facility] Address [address] [place] [address] Care Team Providers Care Clinical Review Nurse Name Role Phone Kenny Alicea MD Primary Care Provider Encounter Details Date Type Department Care Team (Late st Contact Info) Description 03/22/2025 Lab Requisition [facility] Lab [address] [facility] [place] [address] Beny Llamas MD [address] [place] [address] Essential (primary) hypertension Social History Tobacco Use [...] documented as of this encounter Visit Diagnoses Diagnosis Essential (primary) hypertension Unspecified essential hypertension documented in this encounter Care Teams Clinical Review Nurse Relationship Specialty Start Date End Date Kenny Alicea MD [address] [place] [id number] PCP - General Internal Medicine 03/10/21 documented as of this encounter
--- OUTSIDE RECORDS SUMMARY | 2025-05-13 09:37 | XMS_ITS | Encounter Summary ---
Author Organization [facility], Address [address] [place] [address] Phone Care Team Providers Care Hand Candy Cutter Name Role Phone Tahmina Orta MD Primary Care Provider [phone] Encounter Details Date Type Department Care Team (Late st Contact Info) Description 09/06/2022 Documentation Only [facility], [address] [place] [address] David Payan MD [address] [place] [phone] Social History Tobacco Use Types Packs/Day Years [...] on filedocumented in this encounter Care Teams Hand Candy Cutter Relationship Specialty Start Date End Date Tahmina Orta MD [address] [place] [address], [address] [place] [address] PCP - General Radiation Oncology 09/06/22 documented as of this encounter
--- OUTSIDE RECORDS SUMMARY | 2025-05-13 09:37 | XMS_ITS | Encounter Summary ---
Author Organization [facility], Address [address] [place] [address] Phone Care Team Providers Care S[employer] Business Analyst Name Role Phone Tahmina Orta MD Primary Care Provider [phone] Encounter Details Date Type Department Care Team (Late st Contact Info) Description 08/16/2022 Documentation Only [facility], [address] [place] [phone] David Payan MD [address] [place] [phone] Social History Tobacco Use Types Packs/Day Years [...] on filedocumented in this encounter Care Teams [employer] Business Analyst Relationship Specialty Start Date End Date Tahmina Orta MD [address] [place] [address], [address] [place] [address] PCP - General Radiation Oncology 09/06/22 documented as of this encounter
--- OUTSIDE RECORDS SUMMARY | 2025-05-13 09:37 | XMS_ITS | Encounter Summary ---
Author Organization [facility] Address [address] [place] [address] Care Team Providers Care Re Dye Hand Name Role Phone Kenny Alicea MD Primary Care Provider Encounter Details Date Type Department Care Team (Late st Contact Info) Description 02/11/2025 Lab Requisition [facility] - Main Lab [address] [facility] [place] [address] Beny Llamas MD [address] [place] [address] Altered mental status, unspecified; Essential (primary) hypertension Social History Tobacco Use [...] Procedure Name Priority Date/Time Associated Diagnosis Comments CBC WITH AUTO DIFFERENTIAL Routine 02/11/2025 7:50 [...] Altered mental status, unspecified Essential (primary) hypertension documented in this encounter Results * (ABNORMAL) CBC auto differential (02/11/2025 7:50 AM EDT) WBC 7.4 4.8 - 10.8 K/mcL LAB HEMETOLOGY METHOD 02/11/2025 10:32 AM [facility] RBC 3.40(L) 3.80 - 4.80 M/mcL LAB HEMETOLOGY METHOD 02/11/2025 10:32 AM [facility] Hemoglobin 10.2(L) 11.5 - 16.0 g/dL LAB HEMETOLOGY METHOD 02/11/2025 10:32 AM [facility] Hematocrit 29.9(L) 35.0 - 47.0 % LAB HEMETOLOGY METHOD 02/11/2025 10:32 AM [facility] MCV 89.0 79.0 - 98.0 FL LAB HEMETOLOGY METHOD 02/11/2025 10:32 AM [facility] MCH 30.4 27.0 - 32.0 pcg LAB HEMETOLOGY METHOD 02/11/2025 10:32 AM [facility] MCHC 34.1 32.0 - 37.0 g/dL LAB HEMETOLOGY METHOD 02/11/2025 10:32 AM [facility] RDW 13.5 11.0 - 15.0 % LAB HEMETOLOGY METHOD 02/11/2025 10:32 AM [facility] Platelets 207 130 - 400 K/mcL LAB HEMETOLOGY METHOD 02/11/2025 10:32 AM [facility] MPV 10.3 7.0 - 11.0 FL LAB HEMETOLOGY METHOD 02/11/2025 10:32 AM [facility] NRBC 0.0 <1.0 % LAB HEMETOLOGY METHOD 02/11/2025 10:32 AM [facility] NRBC Absolute 0.00 <0.10 K/mcL LAB HEMETOLOGY METHOD 02/11/2025 10:32 AM [facility] Neutrophils Relative 73.1 % LAB HEMETOLOGY METHOD 02/11/2025 10:32 AM [facility] Lymphocytes Relative 13.9 % LAB HEMETOLOGY METHOD 02/11/2025 10:32 AM [facility] Monocytes Relative 8.4 % LAB HEMETOLOGY METHOD 02/11/2025 10:32 AM [facility] Eosinophils Relative 3.0 % LAB HEMETOLOGY METHOD 02/11/2025 10:32 AM [facility] Basophils Relative 0.3 % LAB HEMETOLOGY METHOD 02/11/2025 10:32 AM [facility] Immature Granulocytes Relative 1.3 % LAB HEMETOLOGY METHOD 02/11/2025 10:32 AM [facility] Neutrophils Absolute 5.43 1.50 - 7.00 K/mcL LAB HEMETOLOGY METHOD 02/11/2025 10:32 AM [facility] Lymphocytes Absolute 1.03 1.00 - 5.00 K/mcL LAB HEMETOLOGY METHOD 02/11/2025 10:32 AM [facility] Monocytes Absolute 0.62 0.20 - 1.00 K/mcL LAB HEMETOLOGY METHOD 02/11/2025 10:[address] [facility] Eosinophils Absolute 0.22 0.00 - 0.50 K/[facility] LAB HEMETOLOGY METHOD 02/11/2025 10:[address] [facility] Basophils Absolute 0.02 0.00 - 0.20 K/[facility] LAB HEMETOLOGY METHOD 02/11/2025 10:[address] [facility] Immature Granulocytes Absolute 0.10(H) 0.00 - 0.03 K/[facility] LAB HEMETOLOGY METHOD 02/11/2025 10:[address] [facility] Blood Venous blood specimen / Unknown Venipuncture / Unknown 02/11/2025 7:50 AM EDT 02/11/2025 10:05 AM EDT us Beny Llamas MD LAB BLOOD ORDERABLES Final Resul t Performing Organization Address City/[facility]/ZIP Co de Phone Number [facility] [address] [place] [address], [place] [phone] * (ABNORMAL) Folate (02/11/2025 7:50 AM EDT) [facility] Folate >20.0(H) 2.8 - 17.0 ng/ml LAB CHEMISTRY METHOD 02/11/2025 12:[address] [facility] Blood Venous blood specimen / Unknown Venipuncture / Unknown 02/11/2025 7:50 AM EDT 02/11/2025 10:05 AM EDT us Beny Llamas MD LAB BLOOD ORDERABLES Final Resul t [facility] [address] [place] [address], [place] [phone] * (ABNORMAL) Vitamin B12 (02/11/2025 7:50 AM EDT) Vitamin B-12 1,700(H) 250 - 900 pcg/mL LAB CHEMISTRY METHOD 02/11/2025 12:[address] [facility] Blood Venous blood specimen / Unknown Venipuncture / Unknown 02/11/2025 7:50 AM EDT 02/11/2025 10:05 AM EDT us Beny Llamas MD LAB BLOOD ORDERABLES Final Resul t Performing Organization Address [facility] [place]/[facility] de Phone Number [facility] [address] [place] [address], [place] [phone] * (ABNORMAL) Thyroid stimulating hormone (02/11/2025 7:50 AM EDT) TSH 4.87(H) 0.40 - 4.00 mcIU/mL LAB CHEMISTRY METHOD 02/11/2025 1:[address] [facility] Blood Venous blood specimen / Unknown Venipuncture / Unknown 02/11/2025 7:50 AM EDT 02/11/2025 10:05 AM EDT us Beny Llamas MD LAB BLOOD ORDERABLES Final Resul t Performing Organization Address [facility] [place]/[facility] de Phone Number [facility] [address] [place] [address], [place] [phone] * (ABNORMAL) Basic metabolic panel (02/11/2025 7:50 AM EDT) Sodium 129(L) 133 - 145 mmol/L LAB CHEMISTRY METHOD 02/11/2025 11:[address] [facility] Potassium 4.5 3.5 - 5.5 mmol/L LAB CHEMISTRY METHOD 02/11/2025 11:[address] [facility] Chloride 97 96 - 110 mmol/L LAB CHEMISTRY METHOD 02/11/2025 11:[address] [facility] CO2 25 21 - 32 mmol/L LAB CHEMISTRY METHOD 02/11/2025 11:[address] [facility] Anion Gap 7 3 - 11 LAB CHEMISTRY METHOD 02/11/2025 11:56 AM [facility] Glucose 92 70 - 100 mg/dL LAB CHEMISTRY METHOD 02/11/2025 11:56 AM [facility] BUN 13 5 - 25 mg/dL LAB CHEMISTRY METHOD 02/11/2025 11:56 AM [facility] Creatinine 0.82 0.50 - 1.10 mg/dL LAB CHEMISTRY METHOD 02/11/2025 11:56 AM [facility] eGFR 73 >=60 mL/min/1. 73m2 LAB CHEMISTRY METHOD 02/11/2025 11:56 AM [facility] Comment:Calculation based on the Chronic Kidney Disease Epidemiology Collaboration (CKD-EPI) equation refit without adjustment for race. BUN/Creatinine Ratio 15.9 LAB CHEMISTRY METHOD 02/11/2025 11:56 AM [facility] Calcium 9.4 8.5 - 10.5 mg/dL LAB CHEMISTRY METHOD 02/11/2025 11:56 AM [facility] Blood Venous blood specimen / Unknown Venipuncture / Unknown 02/11/2025 7:50 AM EDT 02/11/2025 10:05 AM EDT us Beny Llamas MD LAB BLOOD ORDERABLES Final Resul t [facility] [address] [place] [address], [place] [phone] documented in this encounter Visit Diagnoses Diagnosis Altered mental status, unspecified Essential (primary) hypertension Unspecified essential hypertension documented in this encounter Care Teams Re Dye Hand Relationship Specialty Start Date End Date Kenny Alicea MD [address] [place] [id number] PCP - General Internal Medicine 03/10/21 documented as of this encounter
--- OUTSIDE RECORDS SUMMARY | 2025-05-13 09:37 | XMS_ITS | Encounter Summary ---
Author Organization [facility], Address [address] [place] [address] Phone Care Team Providers Care Volleyball Assistant Coach Name Role Phone Tahmina Orta MD Primary Care Provider [phone] Encounter Details Date Type Department Care Team (Late st Contact Info) Description 08/16/2022 Documentation Only [facility], [address] [place] [phone] David Payan MD [address] [place] [phone] Social History Tobacco Use Types Packs/Day Years [...] on filedocumented in this encounter Care Teams Volleyball Assistant Coach Relationship Specialty Start Date End Date Tahmina Orta MD [address] [place] [address], [address] [place] [address] PCP - General Radiation Oncology 09/06/22 documented as of this encounter
--- OUTSIDE RECORDS SUMMARY | 2025-05-13 09:37 | XMS_ITS | Encounter Summary ---
Author Organization [facility] Address [address] [place] [address] Care Team Providers Care Machine Setter And Repairer Name Role Phone Kenny Alicea MD Primary Care Provider [phone] Encounter Details Date Type Department Care Team (Late st Contact Info) Description 02/27/[address] [facility] - Main Lab [address] [facility] [place] [address] Beny Llamas MD [address] [place] [address] Essential (primary) hypertension Social History Tobacco Use [...] Associated Diagnosis Comments COMPLETE BLOOD COUNT Routine 03/02/2025 6:08 AM EDT Essential (primary) hypertension BASIC METABOLIC PANEL Routine 03/02/2025 6:08 AM EDT Essential (primary) hypertension documented in this encounter Results * (ABNORMAL) Basic metabolic panel (03/02/2025 6:08 AM EDT) Sodium 130(L) 133 - 145 mmol/L LAB CHEMISTRY METHOD 03/02/2025 4:26 PM [facility] Potassium 3.9 3.5 - 5.5 mmol/L LAB CHEMISTRY METHOD 03/02/2025 4:26 PM [facility] Chloride 98 96 - 110 mmol/L LAB CHEMISTRY METHOD 03/02/2025 4:26 PM [facility] CO2 23 21 - 32 mmol/L LAB CHEMISTRY METHOD 03/02/2025 4:26 PM [facility] Anion Gap 9 3 - 11 LAB CHEMISTRY METHOD 03/02/2025 4:26 PM [facility] Glucose 63(L) 70 - 100 mg/dL LAB CHEMISTRY METHOD 03/02/2025 4:26 PM [facility] BUN 11 5 - 25 mg/dL LAB CHEMISTRY METHOD 03/02/2025 4:26 PM [facility] Creatinine 0.74 0.50 - 1.10 mg/dL LAB CHEMISTRY METHOD 03/02/2025 4:26 PM [facility] eGFR 83 >=60 mL/min/1. 73m2 LAB CHEMISTRY METHOD 03/02/2025 4:26 PM [facility] Comment:Calculation based on the Chronic Kidney Disease Epidemiology Collaboration (CKD-EPI) equation refit without adjustment for race. BUN/Creatinine Ratio 14.9 LAB CHEMISTRY METHOD 03/02/2025 4:26 PM [facility] Calcium 8.6 8.5 - 10.5 mg/dL LAB CHEMISTRY METHOD 03/02/2025 4:26 PM [facility] Blood Venous blood specimen / Unknown Venipuncture / Unknown 03/02/2025 6:08 AM EDT 03/02/2025 4:26 PM EDT us Beny Llamas MD LAB BLOOD ORDERABLES Final Resul t [facility] [address] [place] [address], * (ABNORMAL) Complete blood count (03/02/2025 6:08 AM EDT) [facility] WBC 5.6 4.8 - 10.8 K/mcL LAB HEMETOLOGY METHOD 03/02/2025 10:[address] [facility] RBC 3.00(L) 3.80 - 4.80 M/mcL LAB HEMETOLOGY METHOD 03/02/2025 10:[address] [facility] Hemoglobin 9.2(L) 11.5 - 16.0 g/dL LAB HEMETOLOGY METHOD 03/02/2025 10:[address] [facility] Hematocrit 27.2(L) 35.0 - 47.0 % LAB HEMETOLOGY METHOD 03/02/2025 10:[address] [facility] MCV 91.0 79.0 - 98.0 FL LAB HEMETOLOGY METHOD 03/02/2025 10:[address] [facility] MCH 30.8 27.0 - 32.0 pcg LAB HEMETOLOGY METHOD 03/02/2025 10:[address] [facility] MCHC 33.8 32.0 - 37.0 g/dL LAB HEMETOLOGY METHOD 03/02/2025 10:[address] [facility] RDW 14.1 11.0 - 15.0 % LAB HEMETOLOGY METHOD 03/02/2025 10:[address] [facility] Platelets 213 130 - 400 K/mcL LAB HEMETOLOGY METHOD 03/02/2025 10:[address] [facility] MPV 9.6 7.0 - 11.0 FL LAB HEMETOLOGY METHOD 03/02/2025 10:[address] [facility] NRBC 0.0 <1.0 % LAB HEMETOLOGY METHOD 03/02/2025 10:[address] [facility] NRBC Absolute 0.00 <0.10 K/mcL LAB HEMETOLOGY METHOD 03/02/2025 10:[address] [facility] Blood Venous blood specimen / Unknown Venipuncture / Unknown 03/02/2025 6:08 AM EDT 03/02/2025 9:52 AM EDT us Beny Llamas MD LAB BLOOD ORDERABLES Final Resul t [facility] [address] [place] [address], documented in this encounter Visit Diagnoses Diagnosis Essential (primary) hypertension Unspecified essential hypertension documented in this encounter Care Teams Machine Setter And Repairer Relationship Specialty Start Date End Date Kenny Alicea MD [address] [place] [id number] PCP - General Internal Medicine 03/10/21 documented as of this encounter
--- OUTSIDE RECORDS SUMMARY | 2025-05-13 09:37 | XMS_ITS | Encounter Summary ---
Author Organization [facility], Address [address] [place] [address] Phone Care Team Providers Care Shoulder Boner Name Role Phone Tahmina Orta MD Primary Care Provider [phone] Encounter Details Date Type Department Care Team (Late st Contact Info) Description 08/16/2022 Documentation Only [facility], [address] [place] [phone] David Payan MD [address] [place] [phone] Social History Tobacco Use Types Packs/Day Years [...] on filedocumented in this encounter Care Teams Shoulder Boner Relationship Specialty Start Date End Date Tahmina Orta MD [address] [place] [address], [address] [place] [address] PCP - General Radiation Oncology 09/06/22 documented as of this encounter
== END 2025-05-13 09:12 | disposition home or self-care (01) ==
PROVIDERS: PCP Internal Medicine; Visit Provider Hospitalist
DX: J84.9 Interstitial pulmonary disease, unspecified (principal); M35.02 Sjogren syndrome with lung involvement; R13.10 Dysphagia, unspecified; R91.1 Solitary pulmonary nodule; I62.9 Nontraumatic intracranial hemorrhage, unspecified
CPT/HCPCS: 99214